=== PATIENT | female | born 1970 | race Caucasian/White ===

== ENCOUNTER → 2023-12-17 13:03 | Outpatient (REF) | payer BC, SELFPAY ==
[2023-12-17 14:13] LABS: % Basophils 0.8 % (0-2); % Eosinophils 2.6 % (0-6); % Immature Granulocytes 0.4 % (0-0.5); % Lymphocytes 42.6 % (20.5-51.1); % Monocytes 7.4 % (1.7-9.3); % Neutrophils 46.2 % (42.2-75.2); Absolute Basophils 0.1 10^3/uL (0-0.2); Absolute Eosinophils 0.2 10^3/uL (0-0.7); Absolute Lymphocytes 3.4 10^3/uL (1.2-3.4); Absolute Monocytes 0.6 10^3/uL (0.1-0.6); Absolute Neutrophils 3.7 10^3/uL (1.4-6.5); Hematocrit 43.7 % (37.0-47.0); Hemoglobin 14.4 g/dL (12.0-16.0); Mean Corpuscular Hgb 31.2 pg (27.0-31.0); Mean Corpuscular Volume 94.8 fL (81.0-99.0); Nucleated Red Blood Cells % 0 %; Platelet Count 216 10^3/uL (130-400); Red Blood Cell Count 4.61 10^6/uL (4.20-5.40); Red Cell Dist. Width 13.4 % (11.5-14.5)
[2023-12-17 14:33] LABS: Blood Urea Nitrogen 14 mg/dl (7-17); Calcium 9.3 mg/dl (8.4-10.2); Carbon Dioxide 33 mmol/L (22-30); Chloride 103 mmol/L (98-107); Glucose 100 mg/dl (70-99); Potassium 3.7 mmol/L (3.5-5.1); Sodium 139 mmol/L (135-145); eGFR > 60.00
== END ==
LOC: RCS 13:03
PROVIDERS: ATTENDING PHYSICIAN Orthopaedic Surgery
DX: Z01.818 Encounter for other preprocedural examination (principal)
CPT/HCPCS: 36415; 80048; 85025; 93005

== ENCOUNTER → 2024-01-03 15:16 | Outpatient (REF) | payer BC, SELFPAY | LOC: RAD 15:16 | PROVIDERS: ATTENDING PHYSICIAN Family Medicine | DX: R06.09 Other forms of dyspnea (principal) | CPT/HCPCS: 71046 ==

== ENCOUNTER 2024-01-08 10:50 | Inpatient (IN) | payer BC, SELFPAY ==
[2024-01-08] VITALS (24 sets, daily range): BP systolic 96–150; BP diastolic 54–100; PULSE 75–80; O2SAT 94–96; BMI 43.3
--- NOTE | 2024-01-08 06:43 | ED.GENMED ---
History of Present Illness
General
Chief Complaint: Musculo-Skeletal Complaint
Time Seen by Provider: 01/08/24 06:27
Travel History
Have you had any contact with someone who has COVID-19?: No
Do you have any symptoms of coronavirus? Fever > 100 degrees, chills, cough, shortness of breath, sore throat, loss of taste or smell, muscle aches, or headache?: No
History of Present Illness
History of Present Illness:
HPI: The patient is postop day 1 for left total knee replacement done by Dr. Jose. Last evening she fell onto the left knee and dehisced the wound. She was originally seen at [facility] and they contacted Dr. Jose/Dr. Mercado who wanted the
atient to be sent here. She reports having extensive CT imaging including the head, C-spine, abdomen pelvis at [facility] which was reportedly negative. She is not sure of left knee x-ray results
EXAM:
GENERAL: The patient appears somewhat uncomfortable, she is currently on oxygen nasal cannula as she did desat after narcotics were given at [facility]
HEENT: Moist oral mucosa
CARDIOVASCULAR: No murmurs, normal heart rate and rhythm, No chest wall tenderness
PULMONARY: No respiratory distress, breath sounds are clear and equal
ABDOMEN: Soft with no peritoneal signs, no tenderness
NEUROLOGIC: Excellent strength all extremities, no coordination deficits
PSYCHIATRIC: Appropriate mental status, normal insight and judgement
EXTREMITIES: She has a relatively large wound dehiscence on the anterior left knee measuring approximately 8 cm x 3 cm with no active bleeding, decreased active range of motion at the left knee
SKIN: As above
ED COURSE:
7:05 AM: I initially evaluated patient
NUMBER AND COMPLEXITY OF PROBLEMS ADDRESSED AT THE ENCOUNTER
� Chronic conditions affecting care: Left knee replacement January 07, 2024, high blood pressure
� Acute Exacerbation and/or Progression of Chronic Illness: This is an acute problem
� Differential Diagnosis includes: Wound dehiscence, periprosthetic fracture
AMOUNT AND/OR COMPLEXITY OF DATA TO BE REVIEWED AND ANALYZED
� I performed an independent evaluation of and my interpretation is:
EKG:
CT:
X-rays: I personally viewed x-ray and see no periprosthetic fracture I personally viewed x-ray and see no evidence of periprosthetic fracture
Laboratory Studies: White count 10.9, hemoglobin 11.1
Other:
� Review of other/old records: Hemoglobin on 12/17/2023 was 14.4
� Clinical information was obtained by an independent historian: I spoke to daughter and at bedside
� Prescriptions/Medications Considered but not given:
� Further testing considered but not performed:
RISK OF COMPLICATIONS AND/OR MORBIDITY OR MORTALITY OF PATIENT MANAGEMENT
� Social determinants of health affecting care: Lives at home
� Discussion with other providers: I notified Dr. Jose and at his recommendation I have ordered gentamicin and Ancef. He states that Dr. Conte will be taking care of her today.
� Escalation of care including admission/observation vs risk of discharge considered: Patient is given IV antibiotics and analgesia. I spoke to PA with Dr. Jose and they accept to their service. I personally redressed the
wound with new 4 x 4's.
Phy Exam
Physical Exam
Physical Exam:
See HPI
Course
Orders/Labs/Results
Orders:
Orders
01/08/24 Breakfast
NPO
Allow oral meds: Yes
Allow clear liquids: No
NPO
Allow oral meds: Yes
Allow clear liquids: 4hrs prior to procedure
Comment: may have unrestricted clear liquid up to 4 hrs prior to scheduled procedure
01/08/24 06:50
Fentanyl Citrate/Pf [Sublimaze] 50 mcg IV NOW STA
CR Knee - Left 4 Or More View* Urgent
Comment:
Reason For Exam: trauma wound dehiscence
01/08/24 06:55
Complete Blood Count/With Diff Urgent
01/08/24 06:56
Basic Metabolic Panel Urgent
01/08/24 07:17
0.9% Sodium Chloride 500 ml [Nss] 500 ml IV BOLUS
01/08/24 07:18
Code Status As Directed
Resuscitation Status: Full Code
Magnesium Hydroxide [Milk of Magnesia] 30 ml PO DAILYPRN PRN
Oxycodone [Roxicodone] 5 mg PO Q4HPRN PRN
Tamsulosin [Flomax] 0.4 mg PO DAILYPRN PRN
Neurovascular Checks As Directed
Location: Left Lower extremity
Frequency: q4h
Weight Bearing Status As Directed
Weight bearing to: Left lower extremity
Type: Full Wt. bearing
01/08/24 07:19
Admit Patient As Directed
Co-Sign Provider:
Level of Care: Inpatient admission
Assign to:: Orthopedics
Physician / Group: Dr. Jose
Diagnosis: Wound dehiscence s/p left TKA
Reason for Hospitalization: Wound dehiscence s/p left TKA
Expected length of stay greater than two midnights?: Yes
ELOS- Estimated Length of Stay in days: 2
I certify the patient meets the requirements for IP care: Yes
Activity As Directed
Activity Level: As Tolerated
Bladder Scan As Directed
Follow Bladder Retention/Intermittent Cath Algorithm?: Yes
PRN if no void in __ hours: 6
Comment: if not voiding 6 hrs upon arrival to floor, bladder scan & follow algorithm
Intake/ Output As Directed
Frequency: Per unit guidelines
Straight Cath As Directed
Frequency: Per Retention Algorithm
Additional Instructions: straight cath as needed per acute urinary retention algorithm for 24 hrs
Additional Instructions: for bladder scan greater than 400 mL
Vital Signs As Directed
Frequency: Per unit guidelines
01/08/24 07:21
Cold Application As Directed
Location: apply ice to affected area
Frequency: PRN
Duration of Application: No longer than 20 minutes
Method of Delivery: Ice packs
01/08/24 07:23
Venous Foot Pumps As Directed
Location: Bilateral feet
DX Deep Vein Thrombosis Video Routine
01/08/24 07:26
CeFAZolin 2 GRAM [Ancef] 2 grams in 10 ml IV NOW
Gentamicin Sulfate [Gentamicin] 240 mg 0.9% Sodium Chloride [Nss] 50 ml IV NOW
01/08/24 07:35
Type+Screen Urgent
01/08/24 08:00
Acetaminophen [Tylenol] 650 mg PO Q4HWA
Povidone Iodine 10% Solution [Povidone Iodine 10%] 114 ml 0.9% Sod Chloride 3000 ml Irr [Nss Irrigation Bag] 3,000 ml IRRIG OR
01/08/24 20:00
Docusate Sodium [Colace] 100 mg PO BID
Sennosides [Senokot] 17.2 mg PO BID
01/09/24 07:00
Tranexamic Acid 3,000 mg 0.9% Sodium Chloride 250 ml [Nss] 250 ml IRRIG OR
Abnormal Lab Results
01/08/24 01/08/24
06:55 06:56
WBC 10.9 H 10^3/uL
(4.8-10.8)
RBC 3.59 L 10^6/uL
(4.20-5.40)
Hgb 11.1 L g/dL
(12.0-16.0)
Hct 33.2 L %
(37.0-47.0)
Abs Immat Gran (auto) 0.1 H 10^3/uL
(0-0.05)
Absolute Neuts (auto) 8.5 H 10^3/uL
(1.4-6.5)
Absolute Monos (auto) 0.7 H 10^3/uL
(0.1-0.6)
Immature Gran % 0.6 H %
(0-0.5)
Neutrophils % 78.4 H %
(42.2-75.2)
Lymphocytes % 14.1 L %
(20.5-51.1)
Glucose 199 H mg/dl
(70-99)
01/08/24 06:55
01/08/24 06:56
Vital Signs
Initial and Last Documented VS:
Initial Vital Signs
Temp Pulse Resp BP Pulse Ox
98.7 F 91 20 118/80 96
01/08/24 06:24 01/08/24 06:24 01/08/24 06:24 01/08/24 06:24 01/08/24 06:24
Last Documented Vital Signs
Temp Pulse Resp BP Pulse Ox
98.7 F 73 15 117/60 90
01/08/24 06:24 01/08/24 07:00 01/08/24 07:00 01/08/24 07:00 01/08/24 07:00
*Critical Care Note
Total Time (30-74mins, 75-104mins- exclusive of procedures): Not Applicable
ED Attending Note
-
Portions of this chart may have been created with voice recognition software.� Occasional wrong word or��sound alike� substitutions may have occurred due to the inherent limitations of voice recognition software.
Discharge Plan
Departure
Patient Disposition: Admit
Date of Disposition: 01/08/24
Time of Disposition: 07:28
Presentation/result/management discussed w/ accepting /: [facility]
Discharge Problem:
Postoperative wound dehiscence
Referrals:
Mateo Ness DO [Family Provider] -
Interventions
Interventions:
*Risk Screen - Suicide Last Done: 01/08/24 06:24
*General Assessment Last Done: 01/08/24 06:24
*Neglect/Abuse Screening Last Done: 01/08/24 06:24
ED- Fall Risk Assessment Last Done: 01/08/24 06:32
ED-Musculoskeletal Assessment Last Done: 01/08/24 06:31
[2024-01-08] MEDS: SUBLIMAZE 50 MCG IV (06:57)
[2024-01-08 07:07] LABS: % Basophils 0.1 % (0-2); % Immature Granulocytes 0.6 % (0-0.5); % Lymphocytes 14.1 % (20.5-51.1); % Monocytes 6.8 % (1.7-9.3); % Neutrophils 78.4 % (42.2-75.2); Absolute Immature Granulocytes 0.1 10^3/uL (0-0.05); Absolute Lymphocytes 1.5 10^3/uL (1.2-3.4); Absolute Monocytes 0.7 10^3/uL (0.1-0.6); Absolute Neutrophils 8.5 10^3/uL (1.4-6.5); Hematocrit 33.2 % (37.0-47.0); Hemoglobin 11.1 g/dL (12.0-16.0); Mean Corp Hgb Conc. 33.4 g/dL (33.0-37.0); Mean Corpuscular Hgb 30.9 pg (27.0-31.0); Mean Corpuscular Volume 92.5 fL (81.0-99.0); Mean Platelet Volume 10.1 fL (7.4-10.4); Nucleated Red Blood Cells % 0 %; Platelet Count 195 10^3/uL (130-400); Red Blood Cell Count 3.59 10^6/uL (4.20-5.40); Red Cell Dist. Width 13.3 % (11.5-14.5); White Blood Cell Count 10.9 10^3/uL (4.8-10.8)
[2024-01-08 07:20] LABS: Blood Urea Nitrogen 17 mg/dl (7-17); Calcium 9.2 mg/dl (8.4-10.2); Carbon Dioxide 25 mmol/L (22-30); Chloride 106 mmol/L (98-107); Estimated Creatinine Clearance 99 ml/min; Glucose 199 mg/dl (70-99); Potassium 3.9 mmol/L (3.5-5.1); Sodium 137 mmol/L (135-145); eGFR > 60.00
[2024-01-08] MEDS: ANCEF 10 IV (07:36)
[2024-01-08] MEDS: NSS 500 IV (07:36)
[2024-01-08] MEDS: GENTAMICIN 56 MG IV (07:42)
--- NOTE | 2024-01-08 07:42 | HP.FOC2 ---
Focused History & Physical
Chief Complaint
HPI:
Chief Complaint: Left knee incisional dehiscence postop day #1 left total knee replacement under the direction Dr. Jose.
HPI / Indication for Planned Procedure: The patient is a 53-year-old female who underwent left total knee replacement yesterday, 01/07/[address] Jose. Patient reports that she was doing great post-operatively. She got up last night to go to
the bathroom, and unfortunately twisted, and sustained a mechanical fall landing directly onto her left knee. Significant bloody drainage coming from the wound was immediately noted. Patient was taken to [facility] where trauma workup was
completed. Per patient, CT scan of the head was negative. Patient was transferred to [facility] for ongoing care and treatment for her left knee incisional wound dehiscence. She is currently lying in bed, does not appear to be in any
acute distress.
Relevant Past Medical History: Hypertension and Other (Asthma, RLS, Anxiety)
Relevant Social History: Negative
Relevant Family History: Negative
Relevant Past Surgical History: Positive for (Left total knee replacement 01/07/[address] Jose)
Review of Systems
Review of Pertinent Systems: All Systems Negative Except for the Following Positives
Medication
See Medication form for detailed medications: Yes
Allergies and Reactions
Patient has Allergies: Yes
Noted Allergies and Reactions:
Allergy/AdvReac Type Severity Reaction Status Date / Time
Penicillins Allergy Unknown Verified 01/08/24 06:23
Pertinent Physical Exam
All Other Systems: Negative
Head/Neck: Normal
Lungs: Normal
Heart: Normal
Abdomen: Normal
Extremities: Other and Other (Bloody saturated soft tissue dressing overlying the left total knee replacement incision. This was slightly taken back for further evaluation to reveal incisional dehiscence about the mid to distal aspect. ROM
deferred. NVI distally. )
Diagnosis / Assessment
Assessment: Left total knee replacement wound dehiscence.
Plan / Procedure
Plan: Will proceed to OR today under the direction of Dr. Conte for left knee irrigation and debridement, revision wound closure. Consent obtained and placed on patient's clipboard in the ED. Antibiotic started in the emergency department. TXA
irrigation and 9 L of iodine irrigation on-call to the OR. Patient to remain NPO. Type and screen ordered. Left knee marked as the correct surgical extremity. Orthopedic surgery will continue to follow along.
[2024-01-08] MEDS: TYLENOL PO ×2 (08:08→16:02)
--- NOTE | 2024-01-08 13:39 | CON.ID ---
Consultation
-
Date/Time Consultation Requested: 01/08/2024, 1000
Date/Time Consultation Performed: 01/08/2024, 1400
Requesting Provider: Dr. Iván Jose
Performing Provider: Dr. Raven Portillo
Reason for Consultation: Traumatic wound dehiscence day 0 postop L TKR
Chief Complaint / Past History
Chief Complaint
Fell and knee incision opened.
History of Present Illness
53 year old female with hx osteoarthritis who underwent elective Left TKR yesterday. Last night, while in the first floor pwder room at home, her leg buckled and she fell on her left knee. The knee incision opened with significant bleeding. She
called EMS who took her to [facility] with trauma service. She reports she received antibiotic at outside ER, he wound was bandaged. She was then transferred to . She was taken to the OR and noted tendon was rupture. She
underwent I+D, polyethylene lining exchange, and repair of patellar tendon.
Past History
Additional Past Medical History:
Gout
Depression/anxiety
Asthma
HTN
Osteoarthritis
Breast CA s/p Lumpectomy
Allergy History:
Penicillins Allergy (Verified 01/08/24 06:23)
Unknown
Medications Reviewed: Yes
Current Antibiotics:
cefazolin in OR
Social History
Tobacco: Non-Smoker
Alcohol: None
Drug: None
Personal:
Living: With Family
Family History
Family History: Not Pertinent
Review of Systems
Review of Systems
General: Negative Fever, Chills or Change in Appetite
HEENT: Negative Sinus Problems, Headache or Pharyngitis
Cardiovascular: Negative Chest Pain
Respiratory: Negative Dyspnea or Cough
Gasteroenterology: Other (no diarrhea); Negative Nausea or Vomiting
Genital / Urological: Negative Dysuria or Flank Pain
Skin / Hair / Nails: Negative Rash
Neurological: Negative Headache or Dizziness
All systems: All other systems were reviewed and were negative
Vital Signs
Temp Pulse Resp BP Pulse Ox
98.7 F 102 16 141/74 92
01/08/24 06:24 01/08/24 13:15 01/08/24 13:15 01/08/24 13:15 01/08/24 13:15
Physical Exam
Physical Exam
Constitutional: No Acute Distress and Obese
Eyes: No Conjunctival Hemorrhage and Sclera Anicteric
Cardiovascular: Regular Rate and S1/S2
Pulmonary: Clear
Gastrointestinal: Soft, Non Tender, Non Distended and Normal Bowel Sounds
Genito-Urinary: Negative CVA Tenderness
Wound: Other (LLE with dressing, immobilizer, wound vac)
Neurological: AO x 3
Lab / Diagnostic Study Results
01/08/24 06:55
01/08/24 06:56
Abs Immat Gran (auto) 0.1 10^3/uL (0-0.05) H 01/08/24 06:55
Absolute Neuts (auto) 8.5 10^3/uL (1.4-6.5) H 01/08/24 06:55
Absolute Lymphs (auto) 1.5 10^3/uL (1.2-3.4) 01/08/24 06:55
Absolute Monos (auto) 0.7 10^3/uL (0.1-0.6) H 01/08/24 06:55
Absolute Basos (auto) 0.0 10^3/uL (0-0.2) 01/08/24 06:55
Immature Gran % 0.6 % (0-0.5) H 01/08/24 06:55
Neutrophils % 78.4 % (42.2-75.2) H 01/08/24 06:55
Lymphocytes % 14.1 % (20.5-51.1) L 01/08/24 06:55
Monocytes % 6.8 % (1.7-9.3) 01/08/24 06:55
Eosinophils % 0.0 % (0-6) 01/08/24 06:55
Basophils % 0.1 % (0-2) 01/08/24 06:55
Microbiology Results
Micro:
01/08/24 12:23 Tissue Culture - Pending
Knee - Left Gram Stain - Pending
01/08/24 Knee XRAY: There is moderate joint effusion with relatively superior positioning of the patella raising concern that the patellar tendon may not be intact.�
Assessment / Plan
# s/p left TKR 01/07/24 s/p same day fall with wound dehiscence, ruptured patella tendon.
- Received abx at outside ER.
- Today s/p I+D, polyethylene exchange, tendon repair
OR cx pending
-Ortho requesting IV prophylactic abx
-Start IV cefepime and po metronidazole for now.
Care Review
Plan reviewed with: Physician (Dr. Jose)
[2024-01-08] MEDS: DUONEB 3 ML INH (13:46)
[2024-01-08] MEDS: NSS 1000 IV (14:03)
[2024-01-08] MEDS: DILAUDID 0.5 MG IV (14:38)
--- NOTE | 2024-01-08 16:02 | PTCARENOTE ---
Patient received from PACU in bed; IVF infusing; Wound vac in place, suction at 125mmHg; Surgical site assessed; Knee immobilizer in place; Patient and family oriented to unit, call cha use; Bed in lowest position, wheels locked; Safety maintained;
Assessment ongoing
[2024-01-08] MEDS: ASPIRIN 325 MG PO (17:29)
[2024-01-08] MEDS: TYLENOL 650 MG PO ×2 (17:29→20:52)
[2024-01-08] MEDS: ROXICODONE 10 MG PO (20:51)
[2024-01-08] MEDS: COLACE 100 MG PO (20:52)
[2024-01-08] MEDS: SENOKOT 17.1999999999999993 MG PO (20:52)
[2024-01-08] MEDS: STERILE WATER FOR INJECTION 10 ML IV (20:53)
[2024-01-08] MEDS: MAXIPIME 2000 MG IV (20:54)
[2024-01-08] MEDS: REQUIP 0.5 MG PO (21:55)
[2024-01-08] MEDS: FLAGYL 500 MG PO (21:56)
[2024-01-09] VITALS (7 sets, daily range): BP systolic 106–153; BP diastolic 54–82; PULSE 83
[2024-01-09] MEDS: TYLENOL 650 MG PO ×5 (00:40→17:46)
[2024-01-09] MEDS: ROXICODONE 5 MG PO (00:41)
[2024-01-09] MEDS: ROXICODONE PO (04:43)
[2024-01-09] MEDS: ROXICODONE 10 MG PO ×4 (04:49→17:59)
[2024-01-09] MEDS: FLAGYL 500 MG PO ×3 (06:11→21:53)
--- NOTE | 2024-01-09 08:03 | W.PN.ORTHO ---
Today's Communication / Plan
-
53 yo F POD1 left TKA I&D with poly exchange, patellar tendon repair and wound vac closure under the direction of Dr. Jose
--Touchdown weight bearing with walker. Knee immobilizer at all times except wound care. Absolutely no flexion of the knee. PT/OT.
--Recommend ASA 325 mg daily x4 weeks for DVT prophylaxis.
--Continue current pain management regimen. Ice and elevation for edema control.
--IV cefepime and PO metronidazole per ID. Preliminary gram stain from intra-op cultures showing may WBC, no organisms. Continue to follow.
--CBC ordered this AM. Continue to monitor hgb.
--Continue wound care/wound vac management.
--Patient will likely be admitted until at least Sunday (01/11/24) pending final culture and recommendations per ID.
--Orthopedics will continue to follow along.
Assessment
.
Distal Motor Intact: Yes
Dressing:
Clean, dry and intact.
Plan
.
Surgery / Date: Left knee I&D with poly exchange
DVT Prophylaxis: Aspirin
Activity:
Out of bed.
PT/OT
Subjective
.
.:
Ms. Angeles is POD1 following her left prosthetic knee I&D with poly exchange, patellar tendon repair and wound vac closure performed by Dr. Jose. She is resting comfortably in bed this morning, and reports her pain is well controlled with her
current medications.
Vital Signs and Labs
.
Vital Signs and Labs:
Lab Results
01/08/24 06:55
01/08/24 06:56
Temp Pulse Resp BP Pulse Ox
98.4 F 75 16 113/66 96
01/09/24 07:20 01/09/24 07:20 01/09/24 07:20 01/09/24 07:20 01/09/24 07:20
Physical Exam
-
Directed exam of the left lower extremity reveals wound vac in place with scant bloody output. Expected post-operative edema throughout the left lower extremity. Thigh soft and compressible. Minimal tenderness to palpation about the knee. Calf soft
and nontender. Patient able to wiggle toes, plantar and dorsiflex ankle. Neurovascularly intact distally.
[2024-01-09] MEDS: ADVAIR HFA 115/21 MCG INHALER 2 PUFF INH (08:05)
[2024-01-09] MEDS: MAXIPIME 2000 MG IV ×2 (08:40→17:46)
[2024-01-09] MEDS: STERILE WATER FOR INJECTION 10 ML IV ×2 (08:40→17:47)
[2024-01-09] MEDS: SINGULAIR 10 MG PO (08:40)
[2024-01-09] MEDS: LEXAPRO 5 MG PO (08:41)
[2024-01-09] MEDS: SENOKOT 17.1999999999999993 MG PO ×2 (08:41→20:01)
[2024-01-09] MEDS: COLACE 100 MG PO ×2 (08:42→20:01)
[2024-01-09] MEDS: ZYLOPRIM 100 MG PO (08:42)
[2024-01-09] MEDS: COZAAR 50 MG PO (08:42)
[2024-01-09] MEDS: LASIX 20 MG PO (08:42)
[2024-01-09] MEDS: ASPIRIN 325 MG PO (08:42)
[2024-01-09 08:52] LABS: % Basophils 0.3 % (0-2); % Eosinophils 0.1 % (0-6); % Immature Granulocytes 0.8 % (0-0.5); % Lymphocytes 33.5 % (20.5-51.1); % Monocytes 6.5 % (1.7-9.3); % Neutrophils 58.8 % (42.2-75.2); Absolute Immature Granulocytes 0.1 10^3/uL (0-0.05); Absolute Lymphocytes 3.8 10^3/uL (1.2-3.4); Absolute Monocytes 0.7 10^3/uL (0.1-0.6); Absolute Neutrophils 6.8 10^3/uL (1.4-6.5); Hematocrit 30.8 % (37.0-47.0); Hemoglobin 9.9 g/dL (12.0-16.0); Mean Corp Hgb Conc. 32.1 g/dL (33.0-37.0); Mean Corpuscular Hgb 30.6 pg (27.0-31.0); Mean Corpuscular Volume 95.1 fL (81.0-99.0); Mean Platelet Volume 10.1 fL (7.4-10.4); Nucleated Red Blood Cells % 0 %; Platelet Count 173 10^3/uL (130-400); Red Blood Cell Count 3.24 10^6/uL (4.20-5.40); Red Cell Dist. Width 13.7 % (11.5-14.5); White Blood Cell Count 11.5 10^3/uL (4.8-10.8)
--- NOTE | 2024-01-09 12:37 | CM ---
Patient seen bedside, initial assessment completed. Patient reports she resides with her and daughter in a two story home, one step to enter. Patient denies DME or SNF, reports [facility] in the past. Patient reports she she has not previously had
a wound vac at home. Patient confirms PCP Mateo Ness, pharmacy [facility]. CM discussed PT recommendation of home health, patient reports she spoke to the Hospitalist earlier and may need a rehab. CM will watch PT/OT evaluations, will continue to
follow for discharge planning needs.
Plan; home with VN vs rehab, pending PT/OT evals.
[2024-01-09] MEDS: MILK OF MAGNESIA 30 ML PO (12:48)
--- NOTE | 2024-01-09 13:05 | WOUNDNOTE ---
WO RN Note: Patient seen around 12pm. Patient sitting in recliner chair. PCT Mayank reports patient's sacral skin is intact. Skin on heels intact. Wound vac intact on L knee. L knee immobilizer in place. [place] texted ortho KERRY Martinez to confirm
next incisional vac change is on Sunday and asked if adaptic with black foam can be used; await response. Confirmed with Shama Gallegos, [employer] rep that home incisional vac is not covered by insurance however, a SNF may be able to provide an incisional
vac post discharge if needed. Updated rn case management Gail Hernandez via tiger text.
[2024-01-09] MEDS: ZOFRAN 4 MG IV (13:29)
--- NOTE | 2024-01-09 14:32 | WOUNDNOTE ---
WOC RN Note: Confirmed with Dionna Michaels next vac dressing change can be Sunday and can use adaptic with black foam. Also carroll texted Karla that home incisional vac is not covered if the incision is approximated however, a SNF may be able
to use a vac for an incision.
--- NOTE | 2024-01-09 15:47 | W.PN.ID1 ---
Date of Service
Date of Service: January 09, 2024
Today's Communication
See below.
Assessment / Plan
# s/p left TKR 01/07/24 s/p same day fall with wound dehiscence, ruptured patella tendon.
- 01/08/24 s/p I+D, polyethylene exchange, tendon repair
OR cx neg to date
-Currently on IV cefepime and po metronidazole (d2)
-Very low probability of bacteria seeding prosthetic joint from wound dehiscence.
She received IV abx immediately at [facility], then at next day.
At time of discharge, recommend a course of cefuroxime 500mg po bid x 2 weeks.
Chief Complaint
-: Other (Wound dehiscence)
Subjective / Review of Systems
No significant pain.
Vital Signs / Physical Exam
Vital Signs
Vital Signs
Temp Pulse Resp BP Pulse Ox
98.1 F 77 14 133/75 93
01/09/24 15:00 01/09/24 15:00 01/09/24 15:00 01/09/24 15:00 01/09/24 15:00
Physical Exam
Constitutional: Comfortable
Gastrointestinal: Soft, Non Tender and Non Distended
Wound: Other (LLE: immobilizer in place)
Objective Data
Lab Data
Lab Results
01/09/24 08:21
01/08/24 06:56
Estimated Creat Clear 99 ml/min 01/08/24 06:56
Most recent labs reviewed.
Micro Results:
01/08/24 12:23 Tissue Culture - Preliminary
Knee - Left No Growth After 18-24 Hours
Gram Stain - Preliminary
01/08/24 Knee XRAY: There is moderate joint effusion with relatively superior positioning of the patella raising concern that the patellar tendon may not be intact.�
[2024-01-09] MEDS: ZOFRAN 4 MG PO (17:51)
[2024-01-09] MEDS: REQUIP 0.5 MG PO (20:01)
[2024-01-09] MEDS: DILAUDID 0.5 MG IV (20:02)
[2024-01-09] MEDS: TYLENOL PO (20:12)
[2024-01-10] MEDS: TYLENOL PO ×2 (00:26→04:09)
[2024-01-10] MEDS: ROXICODONE 10 MG PO ×3 (01:28→20:11)
[2024-01-10] MEDS: ZOFRAN 4 MG IV ×2 (01:28→09:21)
[2024-01-10] MEDS: MAXIPIME 2000 MG IV ×2 (05:32→18:20)
[2024-01-10] MEDS: FLAGYL 500 MG PO ×3 (05:32→21:49)
[2024-01-10] MEDS: STERILE WATER FOR INJECTION 10 ML IV ×2 (05:33→18:20)
[2024-01-10] MEDS: DILAUDID 0.5 MG IV (05:55)
--- NOTE | 2024-01-10 06:56 | W.PN.ORTHO ---
Today's Communication / Plan
-
PT/OT
Immobilizer at all times
Wound VAC/wound care nurse
Aspirin DVT prophylaxis
TDWB as tolerated in knee immobilizer
No left knee flexion
Wound cultures pending
Appreciate ID input on antibiotics
Follow-up next week for wound check
Assessment
.
Distal Motor Intact: Yes
Dressing:
Clean, dry and intact.
Plan
.
Surgery / Date: Left knee I&D with poly exchange
DVT Prophylaxis: Aspirin
Activity:
Out of bed.
PT/OT
Discharge Plan: SNF
Subjective
.
.:
Patient resting comfortably.
Vital Signs and Labs
.
Vital Signs and Labs:
Lab Results
01/09/24 08:21
01/08/24 06:56
Temp Pulse Resp BP Pulse Ox
98.3 F 85 18 106/54 93
01/09/24 23:02 01/09/24 23:02 01/09/24 23:02 01/09/24 23:02 01/09/24 23:02
Physical Exam
-
Left leg knee immobilizer in place with wound VAC
[2024-01-10 07:44] VITALS: BP 144/82
--- NOTE | 2024-01-10 07:50 | W.PN.UPDATE ---
Update Note
Progress Note Update
pt seen and examined yesterday and today...
only small amount of fluid in wound vac cannister, and no fluid in hose which I take as a good sign.
regarding wound, it is incompletely approximated and continued vac use at d/c would be beneficial however we will remove OR vac sponge tomorrow am and assess. If wound care nurse could meet me around 8a that would be awesome.
She has only stood by side of bed and not done any ADL's yet so I'm not sure any determination on discharge disposition can be made yet. Terence's note says WBAT but that's inaccurate, she should be TDWB LLE.
I spoke hank Portillo of ID, at my request she is amenable to 2 weeks of IV abx then reassessment in office. She didn't feel wound had significant contamination but I indicated based on area of wound dehiscense and patella tendon rupture it was
directly over the anterior knee and prosthesis was definitely exposed to outside contaminants for extended period of time measuring 12 hrs+. After IV I may put her on a course of PO abx.
Knee must remain 100% straight at all times, every second of every minute of every day for 3 months. Must not bend in the slightest for 3 months. Hopefully there will be no infection and with my direct repair patella tendon can reconstitute.
She's scared and anxious and I offered support we are doing everything possible for her and I did very agrressive debridement of all contaminated material during the surgery.
For hospital records purposes the debridement mentioned in my op note was excsisional of skin, subq fat, fascial tissue and kat fragments at the patella tendon avulsion/tear site.
[2024-01-10] MEDS: ADVAIR HFA 115/21 MCG INHALER 2 PUFF INH (08:16)
--- NOTE | 2024-01-10 08:55 | W.PN.ID1 ---
Date of Service
Date of Service: January 10, 2024
Today's Communication
DC planning.
See below.
Assessment / Plan
# s/p left TKR 01/07/24 s/p same day fall with wound dehiscence, ruptured patella tendon.
- 01/08/24 s/p I+D, polyethylene exchange, tendon repair
OR cx neg to date
-Currently on IV cefepime and po metronidazole (d3)
-Very low probability of bacteria seeding prosthetic joint from wound dehiscence.
She received IV abx immediately at [facility], then at next day.
However, Ortho Dr. Jose requesting IV antibiotic to protect prosthesis
- Will plan on cefepime 2g IVq12h x 2 weeks through 01/23/2024
Continue metronidazole 500mg po q8 through 01/23/24.
Follow weekly CMP, CBC, CRP while on abx.
Ordered midline.
Infusion sheet submitted to case packer.
-From ID standpoint, can dc when IV abx set up.
Call if any questions.
Chief Complaint
-: Other (Wound dehiscence)
Subjective / Review of Systems
No complaints.
Vital Signs / Physical Exam
Vital Signs
Vital Signs
Temp Pulse Resp BP Pulse Ox
98.8 F 94 18 144/82 92
01/10/24 07:44 01/10/24 08:19 01/10/24 08:19 01/10/24 07:44 01/10/24 08:19
Physical Exam
Constitutional: No Acute Distress and Comfortable
Gastrointestinal: Soft and Non Tender
Wound: Other (LLE with immobilizer and wound vac in place.)
Objective Data
Lab Data
Lab Results
01/09/24 08:21
01/08/24 06:56
Estimated Creat Clear 99 ml/min 01/08/24 06:56
Most recent labs reviewed.
Micro Results:
01/08/24 12:23 Tissue Culture - Preliminary
Knee - Left No Growth After 18-24 Hours
Gram Stain - Preliminary
01/08/24 Knee XRAY: There is moderate joint effusion with relatively superior positioning of the patella raising concern that the patellar tendon may not be intact.�
Care Review
Plan reviewed with: Physician (Dr. Jose)
[2024-01-10] MEDS: ASPIRIN 325 MG PO (09:11)
[2024-01-10] MEDS: SENOKOT 17.1999999999999993 MG PO ×2 (09:11→20:06)
[2024-01-10] MEDS: LEXAPRO 5 MG PO (09:12)
[2024-01-10] MEDS: TYLENOL 650 MG PO ×4 (09:12→20:06)
[2024-01-10] MEDS: COLACE 100 MG PO ×2 (09:12→20:06)
[2024-01-10] MEDS: COZAAR 50 MG PO (09:12)
[2024-01-10] MEDS: SINGULAIR 10 MG PO (09:12)
[2024-01-10] MEDS: ZYLOPRIM 100 MG PO (09:12)
--- NOTE | 2024-01-10 12:19 | CM ---
Addendum entered by Melvina Barney RN 01/10/24 15:26:
[facility] willing to accept, but is requesting PMR consult for prior auth. TT to attending requesting PMR consult.
Original Note:
Reviewed the chart notes and spoke with the patient at the bedside. The patient was evaluated by PT and recommending Acute Rehab. Referral sent to [facility] [place]. Discussed if unaccepted or insurance denies acute rehab, referrals to area SNF could be
placed for wound care and IV abx through 01/24/24. CM continues to be available to patient/family and is monitoring medical plan for needs at discharge.
Plan: Discharge to either acute rehab or SNF when bed found and insurance auth obtained.
[2024-01-10] MEDS: LASIX 20 MG PO (15:07)
[2024-01-10 15:51] VITALS: BP 138/79
[2024-01-10] MEDS: REGLAN 10 MG PO (16:38)
[2024-01-10] MEDS: ZOFRAN 4 MG PO (18:20)
[2024-01-10] MEDS: REQUIP 0.5 MG PO (21:49)
[2024-01-10 23:09] VITALS: BP 135/76
[2024-01-11] MEDS: TYLENOL 650 MG PO ×5 (00:18→19:42)
[2024-01-11] MEDS: ZOFRAN 4 MG PO ×2 (00:20→13:27)
[2024-01-11] MEDS: TYLENOL PO (04:03)
[2024-01-11] MEDS: FLAGYL 500 MG PO ×3 (06:02→22:22)
[2024-01-11] MEDS: STERILE WATER FOR INJECTION 10 ML IV ×2 (06:02→17:10)
[2024-01-11] MEDS: MAXIPIME 2000 MG IV ×2 (06:03→17:09)
[2024-01-11] MEDS: ROXICODONE 10 MG PO ×2 (06:14→22:30)
[2024-01-11 07:22] VITALS: BP 147/81
[2024-01-11] MEDS: SINGULAIR 10 MG PO (07:35)
[2024-01-11] MEDS: ASPIRIN 325 MG PO (07:35)
[2024-01-11] MEDS: LEXAPRO 5 MG PO (07:35)
[2024-01-11] MEDS: COLACE 100 MG PO ×2 (07:36→19:42)
[2024-01-11] MEDS: SENOKOT 17.1999999999999993 MG PO ×2 (07:36→19:42)
[2024-01-11] MEDS: ZYLOPRIM 100 MG PO (07:37)
[2024-01-11] MEDS: COZAAR PO (07:37)
[2024-01-11] MEDS: REGLAN 10 MG PO ×3 (07:37→16:11)
[2024-01-11] MEDS: DILAUDID 0.5 MG IV (07:43)
[2024-01-11] MEDS: ADVAIR HFA 115/21 MCG INHALER INH (08:10)
--- NOTE | 2024-01-11 09:15 | WOUNDNOTE ---
[facility] RN note: Patient seen with Dr. Herrera for vac dressing change L knee. Incision with sutures intact with couple of open areas along incision 1.5x.2x.1; .5x.2x.1 approximately. Small-moderate ss drainage. Skin with pinpoint scattered denuded
areas next to incision laterally. L lateral lower thigh with couple of small serous filled blisters suspect r/t edema and friction, applied adaptic and gauze without tape between blisters and knee immobilizer. Vac dressing changed with adaptic,
black foam, pump setting 125mmhg continuous. Confirmed with Dr. Herrera adaptic with black foam is to be used. Patient tolerated well. Vac tubing padded with an ABD pad under tubing under knee immobilizer. L knee immobilizer fastened. L knee
remains completely straight. Plan is possible transfer to [place] vs [facility] rehab when discharged. Dr. Herrera aware L knee vac dressing will need to be removed and temporary dressing (i.e. Adaptic/ABD pad) on day of transfer outside of this building to
SNF rehab and SNF rehab would apply their vac equipment. Dr. Herrera stated may place a pillow under L calf section only to elevate heel off bed. Air chair cushion placed under L calf/ankle to offload L heel. Patient is lifting her R heel off bed.
Skin on heels intact. Next vac change due Sunday.
--- NOTE | 2024-01-11 09:20 | WOUNDNOTE ---
[facility] RN note: Patient seen with Dr. Herrera for vac dressing change L knee. Incision with sutures intact with couple of open areas along incision 1x.3x.1; .5x.2x.1 approximately. Small-moderate ss drainage. Skin with pinpoint scattered denuded areas
next to incision laterally. L lateral lower thigh with couple of small serous filled blisters suspect r/t edema and friction, applied adaptic and gauze without tape between blisters and knee immobilizer. Vac dressing changed with adaptic, black
foam, pump setting 125mmhg continuous. Confirmed with Dr. Herrera adaptic with black foam is to be used. Patient tolerated well. Vac tubing padded with an ABD pad under tubing under knee immobilizer. L knee immobilizer fastened. L knee remains
completely straight. Plan is possible transfer to [place] vs [facility] rehab when discharged. Dr. Herrera aware L knee vac dressing will need to be removed and temporary dressing (i.e. Adaptic/ABD pad) on day of transfer outside of this building to SNF rehab
and SNF rehab would apply their vac equipment. Dr. Herrera stated may place a pillow under L calf section only to elevate heel off bed. Air chair cushion placed under L calf/ankle to offload L heel. Patient is lifting her R heel off bed. Skin on
heels intact. Next vac change due Sunday.
--- NOTE | 2024-01-11 10:23 | PN.CDI ---
CDI
- -
CDI:
Physician Documentation Request
Admit Date: 01/08/24 10:50
Dear Doctor Rebeca ,
Please review the following and provide your response in the progress notes.
Clinical Indicators:
Height: 5 ft4 ft
Weight: 252 lb 3.4 oz
BMI: 43
If possible, please provide an associated diagnosis related to the abnormal BMI, such as:
BMI > or = to 40
Obesity:
Due to excess calories
Drug induced
Due to other cause
Severe or morbid obesity:
With alveolar hypoventilation (Obesity hypoventilation syndrome)
- Other
Use of terms such as suspected, likely, concern for, or probable (associated with a specific diagnosis that is being evaluated, monitored, or treated as if it exists) are acceptable and can be coded in the inpatient setting, when documented at the
time of discharge.
Thank you,
Daniela West RN
CDI Specialist
[place] [facility]
Please use your independent medical judgment in providing your response.
--- NOTE | 2024-01-11 10:28 | PN.CDI ---
CDI
- -
CDI:
Physician Documentation Request
Admit Date: 01/08/24 10:50
Dear Doctor Rebeca,
Please review the following and provide your response in the progress notes.
Clinical Indicators:
Pt admitted with traumatic wound dehiscence of left knee
Documented per Consult, ' The knee incision opened with significant bleeding...'
Trended HGB /Hematocrit below
01/08/24 01/09/24
06:55 08:21
Hgb 11.1 L 9.9 L
Hct 33.2 L 30.8 L
Please provide a diagnosis for the above labs:
Acute blood loss anemia
Acute blood loss anemia with baseline chronic anemia (Specify type)
Other ( Please Specify)
Use of terms such as suspected, likely, concern for, or probable (associated with a specific diagnosis that is being evaluated, monitored, or treated as if it exists) are acceptable and can be coded in the inpatient setting, when documented at the
time of discharge.
Thank you,
Daniela West RN
CDI Specialist
[place] [facility]
Please use your independent medical judgment in providing your response.
--- NOTE | 2024-01-11 12:29 | CM ---
Received notification from admissions at [facility] who spoke with attending who stated that patient can be medically cleared for discharge, just awaiting authorization from insurance.
Placed a call to [employer], patient's insurance and spoke with a [employer] representatives named, Radha, who took preliminary information and provided reference number-[id number]. She requested clinical be faxed to her at [phone]. Will fax all
clinical.
Plan: Case management will continue to follow and assist with discharge planning. [facility] when hopeful clinical is approved for transfer.
--- NOTE | 2024-01-11 13:12 | CON.MD ---
Documented by User: Rhonda Nicole PA-C 01/11/24 16:29
Consultation - Medical
-
Referring Provider: Iván Jose
Chief Complaint: Left knee incisional dehiscence postop day #1 left total knee replacement under the direction Dr. Jose.
History of Present Illness: The patient is a 53-year-old female with PMH of (Hypertension, Asthma, Morbid Obesity, RLS, Gout,Anxiety) who underwent left total knee replacement yesterday, 01/07/[address] Jose.� Patient reports that she was doing
great post-operatively.� She got up last night to go to the bathroom, and unfortunately twisted, and sustained a mechanical fall landing directly onto her left knee.� Significant bloody drainage coming from the wound was immediately noted.� Patient
was taken to [facility] where trauma workup was completed.� Per patient, CT scan of the head was negative.� Patient was transferred to [facility]. On 01/07, underwent left knee irrigation and debridement with polyethylene liner
exchange, primary repair of left patella tendon with suture. Placement of incisional wound VAC. Currently on IV and PO antibiotics prophylaxis until 01/23/2024
Past Medical History: Hypertension, Morbid Obesity, Asthma, RLS, Anxiety, Gout
Procedure History: Left total knee replacement 01/07/[address] Jose
Family History: non-contributory
Social History:
Functional Level Premorbidly: Independent with all activities
Functional Level Currently: Toe touch weight bearing with knee immobilizer, strict precautions to maintain knee extension. Sit to stand transfer�mod assist, stand to sit�mod assist, mod assist x 1 for transfer from bedside chair for left lower
extremity assist. Ambulated 40 feet x 2 1 with rolling walker and min assist x 1 for safety and multiple lines. Toileting�max assist to wipe buttocks and private on commode due to weightbearing status. Pants over hips in standing dependent.
Toilet transfer�mod assist
Tobacco: Denies
Alcohol: Denies
Drug use: Denies
Lives with: Family
24-hour assistance available:
Number of floors: 2
# steps to enter: No steps to enter through garage.
# steps to second floor: 14 steps
Potential First floor set up: Patient was sleeping on a couch first level prior, no bed set up
Driving: yes
Occupation: works
�
Allergies:
Allergy/AdvReac Type Severity Reaction Status Date / Time
Penicillins Allergy Unknown/she Verified 01/08/24 15:15
was a baby
Review of Systems:
Constitutional: (x) Normal _
Eye: (x) Normal _
Ear/Nose/Throat: (x) Normal _
Respiratory: (x) Normal _
Cardiovascular: (x) Normal _
Gastrointestinal: (x) Normal _
Genitourinary: (x) Normal _
Musculoskeletal: (x) left knee replacement
Integumentary: (x) wound dehiscence
Neurologic: (x) Normal _
Psychiatric: (x) Normal _
Endocrine: (x) Normal _
Hematologic/Lymphatic: (x) Normal _
Allergic/Immunologic: (x) Normal _
Medications:
Active Current Visit Medication List
Category Date Time Status
Acetaminophen [Tylenol] Med 01/08/24 08:00 Active
650 mg PO Q4HWA
Albuterol [ProAIR HFA INHALER] Med 01/08/24 13:09 Active
2 puff INH R Q4HPRN PRN
Allopurinol [Zyloprim] Med 01/09/24 08:00 Active
100 mg PO DAILY
Alprazolam [Xanax] Med 01/08/24 13:09 Active
0.5 mg PO BIDPRN PRN
Aspirin Med 01/08/24 18:00 Active
325 mg PO DAILY
Cefepime HCl [Maxipime] Med 01/08/24 18:00 Active
2,000 mg IV Q12H
Docusate Sodium [Colace] Med 01/08/24 20:00 Active
100 mg PO BID
Escitalopram Oxalate [Lexapro] Med 01/09/24 08:00 Active
5 mg PO DAILY
Flush (0.9% Sodium Chloride) [Flush (Nss)] Med 01/08/24 14:00 Active
See Dose Instructions IV PER PROTOCOL
Fluticasone/Salmeterol 115/21 [Advair Hfa 115/21 Mcg Med 01/09/24 08:00 Active
Inhaler]
2 puff INH R DAILY
Furosemide [Lasix] Med 01/08/24 13:09 Active
20 mg PO DAILYPRN PRN
HYDROmorphone [Dilaudid] Med 01/08/24 13:09 Active
0.5 mg IV Q3HPRN PRN
Losartan [Cozaar] Med 01/09/24 08:00 Active
50 mg PO DAILY
Magnesium Hydroxide [Milk of Magnesia] Med 01/08/24 07:18 Active
30 ml PO DAILYPRN PRN
Metoclopramide [Reglan] Med 01/10/24 16:30 Active
10 mg PO AC
MetroNIDAZOLE [Flagyl] Med 01/08/24 22:00 Active
500 mg PO Q8H
Montelukast Sodium [Singulair] Med 01/09/24 08:00 Active
10 mg PO DAILY
Ondansetron HCl [Zofran] Med 01/10/24 16:15 Active
4 mg PO Q6HPRN PRN
Oxycodone [Roxicodone] Med 01/08/24 13:09 Active
10 mg PO Q4HPRN PRN
Oxycodone [Roxicodone] Med 01/08/24 07:18 Active
5 mg PO Q4HPRN PRN
Ropinirole [Requip] Med 01/08/24 22:00 Active
0.5 mg PO HS
Sennosides [Senokot] Med 03/05/24 20:00 Active
17.2 mg PO BID
Sterile Water [Sterile Water For Injection] Med 01/08/24 18:00 Active
10 ml IV Q12H
Tamsulosin [Flomax] Med 01/08/24 07:18 Active
0.4 mg PO DAILYPRN PRN
Vitals:
Temp Pulse Resp BP Pulse Ox
98.1 F 81 18 147/81 94
01/11/24 07:22 01/11/24 07:22 01/11/24 07:22 01/11/24 07:37 01/11/24 07:22
Height 5 ft 4 in
Actual Weight 114.4 kg
Body Mass Index (BMI) 43.3
Physical Exam:
General Appearance/Observation: Well-developed, well-nourished individual in no apparent distress.
Pain/Comfort Assessment: Denies at the moment with pain med
Mood/Affect: Appropriate, pleasant
Integumentary/Operative Site:Wound vac in place with scan bloody output- left lower extremity
�� Pressure Ulcer Evaluation: absent over heels.
�
�� Other Type of Wound: left knee
��
Eyes: Conjunctiva/Lids: normal ��� Pupils: pupils equal round and reactive to light and Accommodation
Ears/Nose/Throat: oral mucosa moist,� throat clear.������������ Lips/Teeth/Gums: normal
Neck: No muscle spasm or tenderness
Cardiovascular: Heart: regular, no murmur
Pulses: dorsalis pedis 1+ bilaterally
Respiratory: Respiratory Effort/Chest Expansion: normal ������ Auscultation: Clear to auscultation bilaterally
Gastrointestinal: abdomen not tender, no distension, normal abdominal bowel sounds
Genitourinary: No Mccoy
Extremities: Edema: left lower ext. swelling>right Cyanosis: None Trophic changes: None
Neurology Exam:
Orientation: Alert, Oriented to self, Time, Place
Memory: Intact for immediately medical concerns
Higher cortical function
Comprehension: Intact
Two step command: Intact
Naming: Intact
Cranial Nerves:
�� CNII: Pupillary light reflex: Intact��� Visual Field:
�� CN III, IV, : Extraocular muscles: Intact
�� CN VII: Facial movement: Symmetric
�� CN VIII: Hearing: Normal
�� CN IX/X: Speech & swallow: Normal, Position of Uvula: Midline
�� CN XI: Shoulder shrug: Symmetric
�� CN XII: Tongue protrusion: Midline
Sensory:
�� Light touch: Intact in bilateral upper and lower extremities
��
Reflexes:
�� Biceps: 2+ bilaterally
�� Brachioradialis: 2+ bilaterally
�� Triceps: 2+ bilaterally
�� Patellar: 2+ right , left deferred
�� Achilles: 1+ bilaterally
�� Babinski: Down going bilaterally
�� Leo: Negative bilaterally
Musculoskeletal:
Motor: (Manual muscle scale 0-5)
Muscle SA EF WE EE FF FA HF KE DF EHL PF
Right� 5 5 5 5 5 5 4 4 5 5 5
Left 5 5 5 5 5 5 5
Tone: Normal in all extremities, left LE not tested
Range of Motion: Passively within normal limits in all extremities, Left LE not tested
Lab Results
Labs
WBC 11.5 10^3/uL (4.8-10.8) H 01/09/24 08:21
RBC 3.24 10^6/uL (4.20-5.40) L 01/09/24 08:21
Hgb 9.9 g/dL (12.0-16.0) L 01/09/24 08:21
Hct 30.8 % (37.0-47.0) L 01/09/24 08:21
MCV 95.1 fL (81.0-99.0) 01/09/24 08:21
MCH 30.6 pg (27.0-31.0) 01/09/24 08:21
MCHC 32.1 g/dL (33.0-37.0) L 01/09/24 08:21
RDW 13.7 % (11.5-14.5) 01/09/24 08:21
Plt Count 173 10^3/uL (130-400) 01/09/24 08:21
MPV 10.1 fL (7.4-10.4) 01/09/24 08:21
Abs Immat Gran (auto) 0.1 10^3/uL (0-0.05) H 01/09/24 08:21
Absolute Neuts (auto) 6.8 10^3/uL (1.4-6.5) H 01/09/24 08:21
Absolute Lymphs (auto) 3.8 10^3/uL (1.2-3.4) H 01/09/24 08:21
Absolute Monos (auto) 0.7 10^3/uL (0.1-0.6) H 01/09/24 08:21
Absolute Eos (auto) 0.0 10^3/uL (0-0.7) 01/09/24 08:21
Absolute Basos (auto) 0.0 10^3/uL (0-0.2) 01/09/24 08:21
Immature Gran % 0.8 % (0-0.5) H 01/09/24 08:21
Neutrophils % 58.8 % (42.2-75.2) 01/09/24 08:21
Lymphocytes % 33.5 % (20.5-51.1) 01/09/24 08:21
Monocytes % 6.5 % (1.7-9.3) 01/09/24 08:21
Eosinophils % 0.1 % (0-6) 01/09/24 08:21
Basophils % 0.3 % (0-2) 01/09/24 08:21
Nucleated RBC % 0 % 01/09/24 08:21
Sodium 137 mmol/L (135-145) 01/08/24 06:56
Potassium 3.9 mmol/L (3.5-5.1) 01/08/24 06:56
Chloride 106 mmol/L (98-107) 01/08/24 06:56
Carbon Dioxide 25 mmol/L (22-30) 01/08/24 06:56
BUN 17 mg/dl (7-17) 01/08/24 06:56
Creatinine 0.8 mg/dL (0.6-1.0) 01/08/24 06:56
Estimated Creat Clear 99 ml/min 01/08/24 06:56
eGFR > 60.00 01/08/24 06:56
Glucose 199 mg/dl (70-99) H 01/08/24 06:56
Calcium 9.2 mg/dl (8.4-10.2) 01/08/24 06:56
Blood Type O POS 01/08/24 07:39
Blood Type Confirm Cancelled 01/08/24 09:11
Antibody Screen Negative (Negative) 01/08/24 07:39
�
Diagnostic Results: as per HPI
Assessment patient is a 53-year-old female with PMH of (Hypertension, Asthma, Morbid Obesity, RLS, Gout,Anxiety) who underwent left total knee replacement yesterday, 01/07/[address] Jose.� Patient reports that she was doing great
post-operatively.� She got up last night to go to the bathroom, and unfortunately twisted, and sustained a mechanical fall landing directly onto her left knee. On 01/07, underwent left knee irrigation and debridement with polyethylene liner exchange,
primary repair of left patella tendon with suture. Placement of incisional wound VAC.
Plan
PT/OT to increase independence with ADLs, improve balance, coordination, endurance, strength, mobility, community reintegration, decreased burden of care on others and family education.
Left total knee replacement on 01/06 with wound dehiscence/ s/p tendon repair: 01/07 underwent Post left knee irrigation and debridement with polyethylene liner exchange, primary repair of left patella tendon with suture. Placement of incisional
wound VAC. wound care/wound vac management. Per ortho touchdown weight bearing with walker. Knee immobilizer at all times except wound care.�Absolutely no flexion of the knee.
ID recommended-IV cefepime and PO metronidazole. Preliminary gram stain from intra-op cultures showing many WBC, no organisms to date. Per surgeon-Knee must remain 100% straight at all times, every second of every minute of every day for 3 months.�
Must not bend in the slightest for 3 months.� Patient on IV cefepime 2g IVq12h x 2 weeks through 01/23/2024. Continue metronidazole 500mg po q8 through 01/23/24. Follow weekly CMP, CBC, CRP while on abx.�
HTN: Losartan potassium 50 mg daily, monitor closely
RLS: Requip 0.5 at bedtime.
Asthma: Advair HFA 112 03/25 mcg inhaler, 2 puffs daily
Bilateral lower extremity edema: Consider TEDS as able. Increased fluid will cause more force requirement to move lower extremities which requires more strength and increases fatigue. Lasix prn
Anemia: Likely multifactorial.�Hgb 9.9 Continue to monitor.
Gout:Allopurinol 100mg qd
Psych: Psychology consult.� anxiety- Lexapro 5mg, adjust medications as needed.
Skin: monitor for pressure sores/rashes/lesions. Wound vac noted on left side. Left knee in immobilizer
Pain: acetaminophen or oxycodone as needed.Ice and elevation for edema control.
Bowel: Colace and Senna, PRN bisacodyl.
Bladder: Time void, PVRs, PRN straight cath.
GI Prophylaxis: Pantoprazole
DVT Prophylaxis: ortho Recommend ASA 325 mg daily x4 weeks for DVT prophylaxis.
Pulmonary: Incentive spirometry
Morbid obesity: Continue to counseling program leader patient about diet adjustments to control obesity. Body habitus and increased force to move body and extremities causes further difficulty with functional tasks.
Safety: Continue to reinforce assistance with all transfers.
Code Status:� Full code
Dispo (date/plan/equipment needs): Home with family care.� Social history reviewed.
Functional and Medical Goals: Modified Independent with ADL�s, ambulation, transfers
Summary of recommendations:
- Discharge Destination: Patient would benefit from acute inpatient rehab due to morbid obesity with limited activity on the left side secondary to patellar reconstruction, is on IV antibiotics to prevent infection and requiring
wound VAC which require fpc care.
Left total knee replacement on 01/06 with wound dehiscence/ s/p tendon repair: 01/07 underwent Post left knee irrigation and debridement with polyethylene liner exchange, primary repair of left patella tendon with suture. Placement of incisional
wound VAC. wound care/wound vac management. Per ortho touchdown weight bearing with walker. Knee immobilizer at all times except wound care.�Absolutely no flexion of the knee.
ID recommended-IV cefepime and PO metronidazole. Preliminary gram stain from intra-op cultures showing many WBC, no organisms to date. Per surgeon-Knee must remain 100% straight at all times, every second of every minute of every day for 3 months.�
Must not bend in the slightest for 3 months.� On IV cefepime 2g IVq12h x 2 weeks through 01/23/2024
Continue metronidazole 500mg po q8 through 01/23/24. Follow weekly CMP, CBC, CRP while on abx.�
Pain: acetaminophen or oxycodone as needed.Ice and elevation for edema control. Patient needs to be off IV pain meds for transfer to rehab.
Nausea: Reglan prn. Can try eating first before taking pain meds and see if that improves nausea
DVT Prophylaxis: ortho Recommend ASA 325 mg daily x4 weeks for DVT prophylaxis.
Pulmonary: Incentive spirometry
Morbid obesity: Continue to counseling program leader patient about diet adjustments to control obesity. Body habitus and increased force to move body and extremities causes further difficulty with functional tasks.
Safety: Continue to reinforce assistance with all transfers.
Blood pressure must be less than 180 systolic and 100 diastolic for 24 hours before being stable for transfer to SNF/acute rehab.

Documented by User: Devendra Lima MD 01/11/24 17:57
Consultation - Medical
-
Referring Provider: Iván Jose
Chief Complaint: Left knee incisional dehiscence postop day #1 left total knee replacement under the direction Dr. Jose.
History of Present Illness: 53-year-old F [facility] (Hypertension, Asthma, Morbid Obesity, RLS, Gout,Anxiety) who underwent left total knee replacement 01/07/[address] Jose.� Patient reports that she was doing great post-operatively.� She got up last
night to go to the bathroom, and unfortunately twisted, and sustained a mechanical fall landing directly onto her left knee.� Significant bloody drainage coming from the wound was immediately noted.� Patient was taken to [facility] where
trauma workup was completed.� Per patient, CT scan of the head was negative.� Patient was transferred to [facility]. On 01/07, underwent left knee irrigation and debridement with polyethylene liner exchange, primary repair of left patella
tendon with suture. Placement of incisional wound VAC. Currently on IV and PO antibiotics prophylaxis until 01/23/2024.
Past Medical History: Hypertension, Morbid Obesity, Asthma, RLS, Anxiety, Gout
Procedure History: Left total knee replacement 01/07/[address] Jose
Family History: non-contributory
Social History:
Functional Level Premorbidly: Independent with all activities
Functional Level Currently: Toe touch weight bearing with knee immobilizer, strict precautions to maintain knee extension. Sit to stand transfer�mod assist, stand to sit�mod assist, mod assist x 1 for transfer from bedside chair for left lower
extremity assist. Ambulated 40 feet x 2 1 with rolling walker and min assist x 1 for safety and multiple lines. Toileting�max assist to wipe buttocks and private on commode due to weightbearing status. Pants over hips in standing dependent.
Toilet transfer�mod assist
Tobacco: Denies
Alcohol: Denies
Drug use: Denies
Lives with: Family
24-hour assistance available: No
Number of floors: 2
# steps to enter: No steps to enter through garage.
# steps to second floor: 14 steps
Potential First floor set up: Patient was sleeping on a couch first level prior, no bed set up
Driving: yes
Occupation: works
�
Allergies:
Allergy/AdvReac Type Severity Reaction Status Date / Time
Penicillins Allergy Unknown/she Verified 01/08/24 15:15
was a baby
Review of Systems:
Constitutional: (x) abNormal _tired
Eye: (x) Normal _
Ear/Nose/Throat: (x) Normal _
Respiratory: (x) Normal _
Cardiovascular: (x) Normal _
Gastrointestinal: (x) Normal _
Genitourinary: (x) Normal _
Musculoskeletal: (x) left knee replacement
Integumentary: (x) wound dehiscence
Neurologic: (x) Normal _
Psychiatric: (x) Normal _
Endocrine: (x) Normal _
Hematologic/Lymphatic: (x) Normal _
Allergic/Immunologic: (x) Normal _
Medications:
Active Current Visit Medication List
Category Date Time Status
Acetaminophen [Tylenol] Med 01/08/24 08:00 Active
650 mg PO Q4HWA
Albuterol [ProAIR HFA INHALER] Med 01/08/24 13:09 Active
2 puff INH R Q4HPRN PRN
Allopurinol [Zyloprim] Med 01/09/24 08:00 Active
100 mg PO DAILY
Alprazolam [Xanax] Med 01/08/24 13:09 Active
0.5 mg PO BIDPRN PRN
Aspirin Med 01/08/24 18:00 Active
325 mg PO DAILY
Cefepime HCl [Maxipime] Med 01/08/24 18:00 Active
2,000 mg IV Q12H
Docusate Sodium [Colace] Med 01/08/24 20:00 Active
100 mg PO BID
Escitalopram Oxalate [Lexapro] Med 01/09/24 08:00 Active
5 mg PO DAILY
Flush (0.9% Sodium Chloride) [Flush (Nss)] Med 01/08/24 14:00 Active
See Dose Instructions IV PER PROTOCOL
Fluticasone/Salmeterol 115/21 [Advair Hfa 115/21 Mcg Med 01/09/24 08:00 Active
Inhaler]
2 puff INH R DAILY
Furosemide [Lasix] Med 01/08/24 13:09 Active
20 mg PO DAILYPRN PRN
HYDROmorphone [Dilaudid] Med 01/08/24 13:09 Active
0.5 mg IV Q3HPRN PRN
Losartan [Cozaar] Med 01/09/24 08:00 Active
50 mg PO DAILY
Magnesium Hydroxide [Milk of Magnesia] Med 01/08/24 07:18 Active
30 ml PO DAILYPRN PRN
Metoclopramide [Reglan] Med 01/10/24 16:30 Active
10 mg PO AC
MetroNIDAZOLE [Flagyl] Med 01/08/24 22:00 Active
500 mg PO Q8H
Montelukast Sodium [Singulair] Med 01/09/24 08:00 Active
10 mg PO DAILY
Ondansetron HCl [Zofran] Med 01/10/24 16:15 Active
4 mg PO Q6HPRN PRN
Oxycodone [Roxicodone] Med 01/08/24 13:09 Active
10 mg PO Q4HPRN PRN
Oxycodone [Roxicodone] Med 01/08/24 07:18 Active
5 mg PO Q4HPRN PRN
Ropinirole [Requip] Med 01/08/24 22:00 Active
0.5 mg PO HS
Sennosides [Senokot] Med 01/08/24 20:00 Active
17.2 mg PO BID
Sterile Water [Sterile Water For Injection] Med 01/08/24 18:00 Active
10 ml IV Q12H
Tamsulosin [Flomax] Med 01/08/24 07:18 Active
0.4 mg PO DAILYPRN PRN
Vitals:
Temp Pulse Resp BP Pulse Ox
98.1 F 81 18 147/81 94
01/11/24 07:22 01/11/24 07:22 01/11/24 07:22 01/11/24 07:37 01/11/24 07:22
Height 5 ft 4 in
Actual Weight 114.4 kg
Body Mass Index (BMI) 43.3
Physical Exam:
General Appearance/Observation: Well-developed, well-nourished female in no apparent distress.
Pain/Comfort Assessment: Denies at the moment with pain med
Mood/Affect: Appropriate, pleasant
Integumentary/Operative Site:Wound vac in place with scan bloody output- left lower extremity
�� Pressure Ulcer Evaluation: absent over heels.
��
Eyes: Conjunctiva/Lids: normal ��� Pupils: pupils equal round and reactive to light and Accommodation
Ears/Nose/Throat: oral mucosa moist,� throat clear.������������ Lips/Teeth/Gums: normal
Neck: No muscle spasm or tenderness
Cardiovascular: Heart: regular, no murmur
Pulses: dorsalis pedis 1+ bilaterally
Respiratory: Respiratory Effort/Chest Expansion: normal ������ Auscultation: Clear to auscultation bilaterally
Gastrointestinal: abdomen not tender, no distension, normal abdominal bowel sounds
Genitourinary: No Mccoy
Extremities: Edema: left lower ext. swelling>right Cyanosis: None Trophic changes: None
Neurology Exam:
Orientation: Alert, Oriented to self, Time, Place
Memory: Intact for recent medical concerns
Comprehension: Intact
Two step command: Intact
Naming: Intact
Cranial Nerves:
�� CNII: Pupillary light reflex: Intact��
�� CN III, IV, : Extraocular muscles: Intact
�� CN VII: Facial movement: Symmetric
�� CN VIII: Hearing: Normal
�� CN IX/X: Speech & swallow: Normal, Position of Uvula: Midline
�� CN XI: Shoulder shrug: Symmetric
�� CN XII: Tongue protrusion: Midline
Sensory:
�� Light touch: Intact in bilateral upper and lower extremities
��
Reflexes:
�� Biceps: 2+ bilaterally
�� Brachioradialis: 2+ bilaterally
�� Triceps: 2+ bilaterally
�� Patellar: 2+ right , left deferred
�� Achilles: 1+ bilaterally
�� Babinski: Down going bilaterally
�� Leo: Negative bilaterally
Musculoskeletal: Motor: (Manual muscle scale 0-5)
Muscle SA EF WE EE FF FA HF KE DF EHL PF
Right� 5 5 5 5 5 5 4 4 5 5 5
Left 5 5 5 5 5 5
-able to wiggle left toes
Tone: Normal in all extremities, left LE not tested
Range of Motion: Passively within normal limits in all extremities, Left LE not tested
Lab Results
Labs
WBC 11.5 10^3/uL (4.8-10.8) H 01/09/24 08:21
RBC 3.24 10^6/uL (4.20-5.40) L 01/09/24 08:21
Hgb 9.9 g/dL (12.0-16.0) L 01/09/24 08:21
Hct 30.8 % (37.0-47.0) L 01/09/24 08:21
MCV 95.1 fL (81.0-99.0) 01/09/24 08:21
MCH 30.6 pg (27.0-31.0) 01/09/24 08:21
MCHC 32.1 g/dL (33.0-37.0) L 01/09/24 08:21
RDW 13.7 % (11.5-14.5) 01/09/24 08:21
Plt Count 173 10^3/uL (130-400) 01/09/24 08:21
MPV 10.1 fL (7.4-10.4) 01/09/24 08:21
Abs Immat Gran (auto) 0.1 10^3/uL (0-0.05) H 01/09/24 08:21
Absolute Neuts (auto) 6.8 10^3/uL (1.4-6.5) H 01/09/24 08:21
Absolute Lymphs (auto) 3.8 10^3/uL (1.2-3.4) H 01/09/24 08:21
Absolute Monos (auto) 0.7 10^3/uL (0.1-0.6) H 01/09/24 08:21
Absolute Eos (auto) 0.0 10^3/uL (0-0.7) 01/09/24 08:21
Absolute Basos (auto) 0.0 10^3/uL (0-0.2) 01/09/24 08:21
Immature Gran % 0.8 % (0-0.5) H 01/09/24 08:21
Neutrophils % 58.8 % (42.2-75.2) 01/09/24 08:21
Lymphocytes % 33.5 % (20.5-51.1) 01/09/24 08:21
Monocytes % 6.5 % (1.7-9.3) 01/09/24 08:21
Eosinophils % 0.1 % (0-6) 01/09/24 08:21
Basophils % 0.3 % (0-2) 01/09/24 08:21
Nucleated RBC % 0 % 01/09/24 08:21
Sodium 137 mmol/L (135-145) 01/08/24 06:56
Potassium 3.9 mmol/L (3.5-5.1) 01/08/24 06:56
Chloride 106 mmol/L (98-107) 01/08/24 06:56
Carbon Dioxide 25 mmol/L (22-30) 01/08/24 06:56
BUN 17 mg/dl (7-17) 01/08/24 06:56
Creatinine 0.8 mg/dL (0.6-1.0) 01/08/24 06:56
Estimated Creat Clear 99 ml/min 01/08/24 06:56
eGFR > 60.00 01/08/24 06:56
Glucose 199 mg/dl (70-99) H 01/08/24 06:56
Calcium 9.2 mg/dl (8.4-10.2) 01/08/24 06:56
Blood Type O POS 01/08/24 07:39
Blood Type Confirm Cancelled 01/08/24 09:11
Antibody Screen Negative (Negative) 01/08/24 07:39
�
Diagnostic Results: as per HPI
Assessment
53-year-old F PMH (Hypertension, Asthma, Morbid Obesity, RLS, Gout,Anxiety) with left total knee replacement 01/07/2024 with mechanical fall requiring primary repair of left patella tendon with suture. Placement of incisional wound VAC.
Plan
PT/OT to increase independence with ADLs, improve balance, coordination, endurance, strength, mobility, community reintegration, decreased burden of care on others and family education.
Left total knee replacement on 01/06 with wound dehiscence/ s/p tendon repair: 01/07 underwent Post left knee irrigation and debridement with polyethylene liner exchange, primary repair of left patella tendon with suture. Placement of incisional
wound VAC. wound care/wound vac management. Per ortho touchdown weight bearing with walker. Knee immobilizer at all times except wound care.�
-Absolutely no flexion of the knee. Knee must remain 100% straight at all times, for 3 months
-ID recommended-IV cefepime 2g IVq12h x 2 weeks through 01/23/2024. Continue metronidazole 500mg po q8 through 01/23/24. Follow weekly CMP, CBC, CRP while on abx.�
-Per surgeon- every second of every minute of every day.� Must not bend in the slightest for 3 months.�
HTN: Losartan potassium 50 mg daily, monitor closely
RLS: Requip 0.5 at bedtime.
Asthma: Advair HFA 112 5/21 mcg inhaler, 2 puffs daily
Bilateral lower extremity edema: Consider TEDS as able. Increased fluid will cause more force requirement to move lower extremities which requires more strength and increases fatigue. Lasix prn
Anemia: Likely multifactorial.�Hgb 9.9 Continue to monitor.
Gout:Allopurinol 100mg qd
Psych: Psychology consult.� anxiety- Lexapro 5mg, adjust medications as needed.
Skin: monitor for pressure sores/rashes/lesions. Wound vac noted on left side. Left knee in immobilizer
Pain: acetaminophen or oxycodone as needed. Ice and elevation for edema control.
Bowel: Colace and Senna, PRN bisacodyl.
Bladder: No urinary complaints, monitor output
DVT Prophylaxis: ortho Recommend ASA 325 mg daily x4 weeks for DVT prophylaxis.
Pulmonary: Incentive spirometry
Morbid obesity: Continue to counseling program leader patient about diet adjustments to control obesity. Body habitus and increased force to move body and extremities causes further difficulty with functional tasks.
Safety: Continue to reinforce assistance with all transfers.
Code Status:� Full code
Dispo (date/plan/equipment needs): Home with family care.� Social history reviewed.
Functional and Medical Goals: Modified Independent with ADL�s, ambulation, transfers
Summary of recommendations:
Discharge Destination: Patient would benefit from acute inpatient rehab due to morbid obesity with limited activity on the left side secondary to patellar reconstruction, is on IV antibiotics to prevent infection and requiring
wound VAC which require fpc care. Will need to be fitted with wheelchair and proper equipment for toileting.
Left total knee replacement on 01/06 with wound dehiscence/ s/p tendon repair: 01/07 underwent Post left knee irrigation and debridement with polyethylene liner exchange, primary repair of left patella tendon with suture. Placement of incisional
wound VAC. wound care/wound vac management. Per ortho touchdown weight bearing with walker. Knee immobilizer at all times except wound care.�Absolutely no flexion of the knee.
-ID recommended-IV cefepime 2g IVq12h x 2 weeks through 01/23/2024. Continue metronidazole 500mg po q8 through 01/23/24. Follow weekly CMP, CBC, CRP while on abx.�
-Per surgeon- every second of every minute of every day.� Must not bend in the slightest for 3 months.�
Pain: acetaminophen or oxycodone as needed.Ice and elevation for edema control. Patient needs to be off IV pain meds for transfer to rehab.
Nausea: Reglan prn. Can try eating first before taking pain meds and see if that improves nausea, may need change in medications
DVT Prophylaxis: Aspirin 325 mg daily x4 weeks for DVT prophylaxis.
Pulmonary: Incentive spirometry
Morbid obesity: Continue to counseling program leader patient about diet adjustments to control obesity. Body habitus and increased force to move body and extremities causes further difficulty with functional tasks.
Attending statement:
I saw and examined the patient today. Reviewed care plan with patient, therapy, nursing, and physician physician office assistant. I agree with the above subjective, physical exam, and plan as documented above.
[2024-01-11 16:19] VITALS: BP 168/97
[2024-01-11] MEDS: XANAX 0.5 MG PO ×2 (17:17→22:30)
--- NOTE | 2024-01-11 17:55 | PTCARENOTE ---
Patient's blood pressure noted to be elevated; Dr. Jose made aware; Instructed to monitor BP; No further orders or interventions at this time
[2024-01-11] MEDS: REQUIP 0.5 MG PO (19:47)
[2024-01-11 23:00] VITALS: BP 158/93
[2024-01-12] MEDS: TYLENOL PO (00:07)
[2024-01-12] MEDS: TYLENOL 650 MG PO ×5 (03:39→20:41)
[2024-01-12] MEDS: FLUSH (NSS) 1 FLUSH IV (05:51)
[2024-01-12] MEDS: FLAGYL 500 MG PO ×3 (05:51→20:37)
[2024-01-12] MEDS: MAXIPIME 2000 MG IV ×2 (05:51→17:42)
[2024-01-12] MEDS: STERILE WATER FOR INJECTION 10 ML IV ×2 (05:51→17:42)
[2024-01-12] MEDS: ROXICODONE 10 MG PO (05:59)
[2024-01-12 07:46] VITALS: BP 153/92
[2024-01-12] MEDS: ADVAIR HFA 115/21 MCG INHALER 2 PUFF INH (07:51)
[2024-01-12] MEDS: SENOKOT 17.1999999999999993 MG PO ×2 (08:52→20:37)
[2024-01-12] MEDS: LEXAPRO 5 MG PO (08:52)
[2024-01-12] MEDS: COLACE 100 MG PO ×2 (08:52→20:37)
[2024-01-12] MEDS: REGLAN 10 MG PO ×3 (08:53→16:10)
[2024-01-12] MEDS: SINGULAIR 10 MG PO (08:53)
[2024-01-12] MEDS: ASPIRIN 325 MG PO (08:53)
[2024-01-12] MEDS: ZYLOPRIM 100 MG PO (08:55)
[2024-01-12] MEDS: COZAAR 50 MG PO (08:55)
--- NOTE | 2024-01-12 09:38 | W.PN.ID1 ---
Date of Service
Date of Service: January 12, 2024
Today's Communication
Continue current abx
Assessment / Plan
# s/p left TKR 01/07/24 s/p same day fall with wound dehiscence, ruptured patella tendon.
- 01/08/24 s/p I+D, polyethylene exchange, tendon repair
OR cx neg to date
-Currently on IV cefepime and po metronidazole (d4)
-Very low probability of bacteria seeding prosthetic joint from wound dehiscence.
She received IV abx immediately at [facility], then at next day.
However, Ortho Dr. Jose requesting IV antibiotic to protect prosthesis
- Will plan on cefepime 2g IVq12h x 2 weeks through 01/23/2024
Continue metronidazole 500mg po q8 through 01/23/24.
Follow weekly CMP, CBC, CRP while on abx.
- midline in place
Infusion sheet submitted to case repairer.
- From ID standpoint, can dc when IV abx set up.
����������������������������������������������������������
Chief Complaint
-: Other (Left knee wound dehiscence)
Subjective / Review of Systems
Review of Systems: No Fever, No Chills and Nausea (yesterday; improved today)
Vital Signs / Physical Exam
Vital Signs
Vital Signs
Temp Pulse Resp BP Pulse Ox
98.3 F 83 14 153/82 91
01/12/24 07:46 01/12/24 08:55 01/12/24 07:54 01/12/24 08:55 01/12/24 07:46
Physical Exam
Constitutional: No Acute Distress, Comfortable and Non-toxic
Eyes: Sclera Anicteric
Cardiovascular: S1/S2; Negative S3/S4
Pulmonary: Non Labored; Negative Wheezes, Rales or Rhonchi
Gastrointestinal: Soft, Non Tender and Non Distended
Extremities: Other (left knee in immobilizer. VAC in place to the knee area. Dorsal pedal pulses intact.)
Skin: Warm and Dry; Negative Rash or Jaundice
Neurological: Awake and Alert
Psychological: Calm
Objective Data
Lab Data
Lab Results
01/09/24 08:21
01/08/24 06:56
Estimated Creat Clear 99 ml/min 01/08/24 06:56
Most recent labs reviewed.
Micro Results:
01/08/24 12:23 Tissue Culture - Final
Knee - Left No Growth After 72 Hours
Gram Stain - Final
01/08/24 Knee XRAY: There is moderate joint effusion with relatively superior positioning of the patella raising concern that the patellar tendon may not be intact.�
--- NOTE | 2024-01-12 13:21 | W.PN.UPDATE ---
Update Note
Progress Note Update
Elly is resting comfortably in her chair this morning. She reports overall she is doing well, and her symptoms continue to improve with time. Her pain is well controlled with her current pain management regimen. She has no questions or concerns
at this time. Wound vac dressing was changed yesterday.
On exam, wound vac in place with scant bloody output. Expected edema throughout the left lower extremity. Small blisters over the lateral aspect of the knee. Minimal tenderness to palpation about the knee. Calf soft and nontender. NVID.
Cultures negative for growth.
--Continue touchdown weight bearing to LLE. Continue knee immobilizer. Knee to remain 100% straight. PT/OT.
--ASA 325 mg daily for DVT ppx.
--Continue antibiotics per ID. Currently IV cefepime and po metronidazole.
--Continue current pain management regimen.
--Patient hoping for discharge to [facility] re[facility]. Appreciate the assistance of case management with coordinating this.
--Will continue to follow. Please reach out with any additional questions or concerns.
[2024-01-12 15:31] VITALS: BP 138/83; PULSE 77
[2024-01-12 16:13] VITALS: BP 138/83
[2024-01-12] MEDS: REQUIP 0.5 MG PO (20:37)
[2024-01-12] MEDS: XANAX 0.5 MG PO (20:37)
[2024-01-12 22:36] VITALS: BP 139/80
[2024-01-13] MEDS: TYLENOL PO ×2 (00:21→04:14)
[2024-01-13] MEDS: FLAGYL 500 MG PO ×3 (05:21→21:31)
[2024-01-13] MEDS: MAXIPIME 2000 MG IV ×2 (05:21→17:01)
[2024-01-13] MEDS: STERILE WATER FOR INJECTION 10 ML IV ×2 (05:21→17:02)
[2024-01-13] MEDS: REGLAN 10 MG PO ×3 (07:08→17:01)
[2024-01-13 07:42] VITALS: BP 138/91
[2024-01-13] MEDS: TYLENOL 650 MG PO ×5 (07:48→23:28)
[2024-01-13] MEDS: LEXAPRO 5 MG PO (07:49)
[2024-01-13] MEDS: ASPIRIN 325 MG PO (07:49)
[2024-01-13] MEDS: SENOKOT 17.1999999999999993 MG PO (07:49)
[2024-01-13] MEDS: SINGULAIR 10 MG PO (07:50)
[2024-01-13] MEDS: XANAX 0.5 MG PO ×2 (07:50→20:06)
[2024-01-13] MEDS: ZYLOPRIM 100 MG PO (07:50)
[2024-01-13] MEDS: COLACE 100 MG PO (07:50)
[2024-01-13] MEDS: COZAAR 50 MG PO (07:50)
[2024-01-13] MEDS: ADVAIR HFA 115/21 MCG INHALER 2 PUFF INH (08:16)
[2024-01-13 15:42] VITALS: BP 135/76
--- NOTE | 2024-01-13 19:01 | W.PN.UPDATE ---
Update Note
Progress Note Update
Elly is resting comfortably in her chair this evening. She reports overall she is doing well, and her symptoms continue to improve with time. Her pain is well controlled with her current pain management regimen. She has no questions or concerns
at this time. Wound vac at 125 mmHg with scant bloody output.
On exam, wound vac in place with scant bloody output. Expected edema throughout the left lower extremity. Small blisters over the lateral aspect of the knee. Minimal tenderness to palpation about the knee. Calf soft and nontender. NVID.
Cultures negative for growth.
--Continue touchdown weight bearing to LLE. Continue knee immobilizer. Knee to remain 100% straight at all times. PT/OT.
--ASA 325 mg daily for DVT ppx.
--Continue antibiotics per ID. Currently IV cefepime and po metronidazole. Ok for d/c per ID.
--Continue current pain management regimen.
--Patient hoping for discharge to [facility]. Appreciate the assistance of case management with coordinating this. It appears we are awaiting insurance clearance and home IV antibiotic infusions.
--Will continue to follow. Please reach out with any additional questions or concerns.
[2024-01-13] MEDS: COLACE PO (20:03)
[2024-01-13] MEDS: SENOKOT PO (20:03)
[2024-01-13] MEDS: REQUIP 0.5 MG PO (21:31)
[2024-01-13 23:29] VITALS: BP 132/74
[2024-01-14] MEDS: FLAGYL 500 MG PO ×3 (05:04→21:23)
[2024-01-14] MEDS: TYLENOL 650 MG PO ×5 (05:04→19:59)
[2024-01-14] MEDS: STERILE WATER FOR INJECTION 10 ML IV ×2 (05:04→17:50)
[2024-01-14] MEDS: MAXIPIME 2000 MG IV ×2 (05:04→17:50)
[2024-01-14] MEDS: XANAX 0.5 MG PO ×2 (05:24→21:23)
--- NOTE | 2024-01-14 05:42 | PTCARENOTE ---
Pt awake intermittently t/o the night, did not sleep well. pt reports pain at tolerable level. Pt using BSCx1 and walker without difficulty. Left leg immobilizer in place and leg kept straight per MD order. Wound Vac in place. Will monitor.
[2024-01-14 07:00] VITALS: BP 143/83
[2024-01-14] MEDS: ADVAIR HFA 115/21 MCG INHALER 2 PUFF INH (08:01)
--- NOTE | 2024-01-14 08:43 | W.PN.ORTHO ---
Today's Communication / Plan
-
--Continue touchdown weight bearing to LLE. Continue knee immobilizer. Knee to remain 100% straight at all times. PT/OT. NWPD in place.
--ASA 325 mg daily for DVT ppx.
--Continue antibiotics per ID. Currently IV cefepime and po metronidazole. Ok for d/c per ID.
--Continue current pain management regimen.
--Patient hoping for discharge to [facility]. Appreciate the assistance of case management with coordinating this. It appears we are awaiting insurance clearance and home IV antibiotic infusions.
--Will continue to follow and ready for DC orders if approved.
Assessment
.
Distal Motor Intact: Yes
Dressing:
Clean, dry and intact.
Plan
.
Surgery / Date: Left knee I&D with poly exchange
Activity:
Out of bed.
PT/OT
Subjective
.
.:
Patient resting comfortably. Feels ready for DC/transition to rehab
Vital Signs and Labs
.
Vital Signs and Labs:
Lab Results
01/09/24 08:21
01/08/24 06:56
Temp Pulse Resp BP Pulse Ox
98.7 F 78 16 143/83 94
01/14/24 07:00 01/14/24 08:05 01/14/24 08:05 01/14/24 07:00 01/14/24 08:05
[2024-01-14] MEDS: REGLAN 10 MG PO ×3 (08:59→17:50)
[2024-01-14] MEDS: ASPIRIN 325 MG PO (08:59)
[2024-01-14] MEDS: SENOKOT PO ×3 (08:59→19:59)
[2024-01-14] MEDS: LEXAPRO 5 MG PO (08:59)
[2024-01-14] MEDS: SINGULAIR 10 MG PO (08:59)
[2024-01-14] MEDS: COLACE PO ×3 (09:00→19:59)
[2024-01-14] MEDS: COZAAR 50 MG PO (09:00)
[2024-01-14] MEDS: ZYLOPRIM 100 MG PO (09:00)
[2024-01-14 09:59] LABS: Erythrocyte Sed Rate 28 mm/hour (0-20)
--- NOTE | 2024-01-14 10:08 | CM ---
Addendum entered by Nery Dodson 01/14/24 13:08:
Per Rere at [facility], patient has been approved for 7 days Acute at [facility], Auth [id number], 01/15/24 to 01/22/24, [facility] will need to Fax to Acute rehab team at [facility], .
Addendum entered by Nery Dodson 01/14/24 11:07:
Call placed to patient's insurance, , Auth is pending, updated clinicals faxed, including wound vac and IV ABX information.
Original Note:
Chart reviewed and plan is for acute rehab placement at [facility], patient still waiting on Auth from her insurance, patient needs PT/OT, wound vac and IV ABX in rehab setting, casework supervisor will continue to reach out to insurance today to obtain Auth.
Plan; Hopefully patient will be approved for Acute rehab at [facility].
--- NOTE | 2024-01-14 10:11 | W.PN.ID1 ---
Date of Service
Date of Service: January 14, 2024
Today's Communication
Continue abx's till 01/23/24.
Assessment / Plan
# s/p left TKR 01/07/24 s/p same day fall with wound dehiscence, ruptured patella tendon.
- 01/08/24 s/p I+D, polyethylene exchange, tendon repair
OR cx neg
-Currently on IV cefepime and po metronidazole (d4)
-Very low probability of bacteria seeding prosthetic joint from wound dehiscence.
She received IV abx immediately at [facility], then at next day.
However, Ortho Dr. Jose requesting IV antibiotic to protect prosthesis
- Continue on cefepime 2g IVq12h x 2 weeks through 01/23/2024
Continue metronidazole 500mg po q8 through 01/23/24.
Follow weekly CMP, CBC, CRP while on abx.
- midline in place
Infusion sheet submitted to pillowcase sewer.
- Awaiting Rehab.
����������������������������������������������������������
Chief Complaint
-: Other (Left knee wound dehiscence)
Subjective / Review of Systems
No N/V/D. Waiting for rehab placement.
Vital Signs / Physical Exam
Vital Signs
Vital Signs
Temp Pulse Resp BP Pulse Ox
98.7 F 78 16 143/83 94
01/14/24 07:00 01/14/24 08:05 01/14/24 08:05 01/14/24 07:00 01/14/24 08:05
Physical Exam
Constitutional: No Acute Distress and Comfortable
Pulmonary: Clear
Gastrointestinal: Soft and Non Tender
Wound: Other (LLE immobilizer in place with vac.)
Neurological: AO x 3
Lines: Other (RLE midline no erythema)
Objective Data
Lab Data
Lab Results
01/09/24 08:21
01/08/24 06:56
ESR 28 mm/hour (0-20) H 01/14/24 09:06
Estimated Creat Clear 99 ml/min 01/08/24 06:56
C-Reactive Protein 46.00 mg/L (0.0-10.00) H 01/14/24 09:06
Most recent labs reviewed.
Micro Results:
01/08/24 12:23 Tissue Culture - Final
Knee - Left No Growth After 72 Hours
Gram Stain - Final
01/08/24 Knee XRAY: There is moderate joint effusion with relatively superior positioning of the patella raising concern that the patellar tendon may not be intact.�
--- NOTE | 2024-01-14 13:19 | WOUNDNOTE ---
[facility] RN Note: Patient's L knee incisional vac changed. Small ss drainage from incision. Minimal skin irritation along incision. Knee bruising fading. Patient tolerated well. Patient's L lateral thigh intact blisters larger than Sunday. Alex texted
update with L knee incisional photo and L lateral thigh blister photo to Dr. Jose and Dr. Portillo. Adaptic and ABD pad applied to L lateral thigh blisters. Dr. Herrera responded continue Vac for 3 more days, then discontinue and apply daily ABD pad
thereafter. Updated [employer] Attendant Nery Zuniga and [facility] RN Young Waggoner. Nery stated she obtained [facility] auth to start tomorrow so plan is transfer to [facility] tomorrow. Thalia stated she will obtain [facility] vac tomorrow. Updated ANDREW Ellis and
discharge instructions. Patient transferred back to recliner chair with help from patient's daughter Nancy who also works as RN in ED. NWB LLE and L leg/knee remained straight at all times. L knee immobilizer on. Skin on heels and sacrum
intact. L heel blanchable mild red and intact. Pillow off loading heels paying attention not to place pillow behind the L knee. Patient reports a good appetite now that she hasn't been taking pain medicine.
[2024-01-14 15:00] VITALS: BP 121/76
[2024-01-14] MEDS: REQUIP 0.5 MG PO (21:23)
[2024-01-14 22:53] VITALS: BP 136/78
[2024-01-15] MEDS: TYLENOL PO ×2 (01:40→05:02)
[2024-01-15] MEDS: STERILE WATER FOR INJECTION 10 ML IV (05:21)
[2024-01-15] MEDS: FLAGYL 500 MG PO ×2 (05:21→13:21)
[2024-01-15] MEDS: MAXIPIME 2000 MG IV (05:21)
[2024-01-15] MEDS: TYLENOL 650 MG PO ×3 (05:38→12:13)
--- NOTE | 2024-01-15 07:17 | W.PN.ORTHO ---
Today's Communication / Plan
-
Patient doing well today and will be transferred to [facility] today.
Assessment
.
Distal Motor Intact: Yes
Dressing:
Clean, dry and intact.
Plan
.
Surgery / Date: Left knee I&D with poly exchange
DVT Prophylaxis: Aspirin
Activity:
Out of bed.
PT/OT
Discharge Plan: Rehab
Subjective
.
.:
Patient resting comfortably.
Vital Signs and Labs
.
Vital Signs and Labs:
Lab Results
01/09/24 08:21
01/08/24 06:56
Temp Pulse Resp BP Pulse Ox
98.7 F 100 16 136/78 94
01/14/24 22:53 01/14/24 22:53 01/14/24 22:53 01/14/24 22:53 01/14/24 23:20
[2024-01-15] MEDS: ADVAIR HFA 115/21 MCG INHALER 2 PUFF INH (07:59)
[2024-01-15 08:00] VITALS: BP 124/72
[2024-01-15] MEDS: REGLAN 10 MG PO ×2 (08:22→12:13)
[2024-01-15] MEDS: ZYLOPRIM 100 MG PO (08:22)
[2024-01-15] MEDS: COLACE PO (08:22)
[2024-01-15] MEDS: SENOKOT PO (08:23)
[2024-01-15] MEDS: SINGULAIR 10 MG PO (08:23)
[2024-01-15] MEDS: LEXAPRO 5 MG PO (08:23)
[2024-01-15] MEDS: COZAAR 50 MG PO (08:23)
[2024-01-15] MEDS: ASPIRIN 325 MG PO (08:23)
--- NOTE | 2024-01-15 09:36 | CM ---
Chart reviewed and bed is available at [facility] today, patient has been approved for 7 days by insurance. Waiting on Wound Vac delivery to [facility].
Plan; Patient to transfer to [facility] acute rehab today.
[facility]
Report
[phone]
--- NOTE | 2024-01-15 09:53 | W.PN.ID1 ---
Date of Service
Date of Service: January 15, 2024
Today's Communication
Continue on cefepime 2g IVq12h x 2 weeks through 01/23/2024
Continue metronidazole 500mg po q8 through 01/23/24.
Assessment / Plan
# s/p left TKR 01/07/24 s/p same day fall with wound dehiscence, ruptured patella tendon.
- 01/08/24 s/p I+D, polyethylene exchange, tendon repair
OR cx neg
-Currently on IV cefepime and po metronidazole (d4)
-Very low probability of bacteria seeding prosthetic joint from wound dehiscence.
She received IV abx immediately at [facility], then at next day.
However, Ortho Dr. Jose requesting IV antibiotic to protect prosthesis
- Continue on cefepime 2g IVq12h x 2 weeks through 01/23/2024
Continue metronidazole 500mg po q8 through 01/23/24.
Follow weekly CMP, CBC, CRP while on abx.
- To [facility] today.
����������������������������������������������������������
Chief Complaint
-: Other (Left knee wound dehiscence)
Subjective / Review of Systems
No new complaints.
Vital Signs / Physical Exam
Vital Signs
Vital Signs
Temp Pulse Resp BP Pulse Ox
98.5 F 90 14 124/72 92
01/15/24 08:00 01/15/24 08:08 01/15/24 08:08 01/15/24 08:00 01/15/24 08:08
Physical Exam
Constitutional: No Acute Distress and Comfortable
Extremities: Edema (LLE 2+)
Wound: Other (Reviewed 01/13 photos: left knee sutures intact, + surrounding ecchymosis, large blisters on lateral knee)
Lines: Other (midline intact)
Objective Data
Lab Data
Lab Results
01/09/24 08:21
01/08/24 06:56
ESR 28 mm/hour (0-20) H 01/14/24 09:06
Estimated Creat Clear 99 ml/min 01/08/24 06:56
C-Reactive Protein 46.00 mg/L (0.0-10.00) H 01/14/24 09:06
Most recent labs reviewed.
Micro Results:
01/08/24 12:23 Tissue Culture - Final
Knee - Left No Growth After 72 Hours
Gram Stain - Final
01/08/24 Knee XRAY: There is moderate joint effusion with relatively superior positioning of the patella raising concern that the patellar tendon may not be intact.�
[2024-01-15] MEDS: XANAX 0.5 MG PO (10:08)
--- NOTE | 2024-01-15 14:26 | W.DS.TRANS ---
DC Summary - Inside Sales Trainer
-
Discharge Instructions:
Discharge Diagnosis/Procedures L TKA I & D with poly exchange, patella tendon
repair and wound vac placement
Diet As tolerated
Activity With Walker,Do not bear weight L leg
Additional Activity Knee immobilizer at all times (may be TDWB left
leg)
Driving Restrictions No driving
Bathing Restrictions Too unsafe for her to shower, may bath bedside
Other Services PT,OT
Instructions:
Stand-Alone Forms:
Changes to Home Medications: No
Discharge Medications:
DC Medications w/original date entered in State
albuterol sulfate 90 mcg/actuation aerosol inhaler 2 puff inhalation R Q4HPRN PRN wheeze 01/08/24
allopurinol 100 mg tablet 100 mg PO DAILY gout 01/08/24
alprazolam 0.5 mg tablet 0.5 mg PO BID PRN anxiety 01/08/24
aspirin 325 mg tablet 325 mg PO DAILY@2000 Blood Clot Prevention/Tx 01/08/24
celecoxib 100 mg capsule 100 mg PO BID Pain 01/08/24
cholecalciferol (vitamin D3) 125 mcg (5,000 unit) tablet 125 mcg PO TUFR@0800 Supplement 01/08/24
escitalopram oxalate 5 mg tablet 5 mg PO DAILY depression 01/08/24
fluticasone 250 mcg-salmeterol 50 mcg/dose blistr powdr for inhalation (Advair Diskus) 1 inh inhalation R DAILY Lung/Breathing Issues 01/08/24
furosemide 20 mg tablet 20 mg PO DAILY PRN swelling 01/08/24
losartan 50 mg tablet 50 mg PO DAILY Blood Pressure 01/08/24
montelukast 10 mg tablet 10 mg PO DAILY Allergies 01/08/24
ropinirole 0.5 mg tablet 0.5 mg PO HS Neurological Condition 01/08/24
therapeutic multivitamin 1 tab PO DAILY Supplement 01/08/24
cefepime 2 gram solution for injection 2,000 mg IV Q12H #10 ea 01/15/24
docusate sodium 100 mg capsule 100 mg PO BID #30 caps 01/15/24
magnesium hydroxide 400 mg/5 mL oral suspension 30 ml PO DAILYPRN PRN constipation #355 mL 01/15/24
metronidazole 500 mg tablet 500 mg PO Q8H #30 tabs 01/15/24
oxycodone 5 mg tablet 5 mg PO Q4HPRN PRN mild pain #20 tabs 01/15/24
sennosides 8.6 mg tablet (Senna Laxative) 17.2 mg PO BID #30 tabs 01/15/24
Home Medication Changes
Pending Results: No
--- NOTE | 2024-01-15 14:30 | WOUNDNOTE ---
DOMINICK RN NOTE: Patient for transfer to [facility], was informed they received their wound vac machine. Disconnected our vac machine from dressing and clamped tubing for transfer. Put vac machine in soiled utility rm. Will notify /[facility] for pickup.
--- NOTE | 2024-01-15 15:24 | W.PN.UPDATE ---
Update Note
Progress Note Update
Pt's anemia during this hospitalization was acute blood loss anemia secondary to wound dehiscence.
--- NOTE | 2024-01-16 08:16 | WOUNDNOTE ---
WOC RN note: Notified [facility] re: hospital rental pump linen supply load builder via [employer] (work order#[id number])
--- NOTE | 2024-01-18 09:27 | W.PN.UPDATE ---
Update Note
Progress Note Update
When they consulted inpatient ID suggested they thought risk of contamination of the TKA from the wound dehiscence was low but I differed with that assessment. When patient fell she split her wound wide open to the joint, she was taken against her
will to a different ER where she sat with the wound open for 12 hrs before being transferred to then it was several more horus before a OR was available for me to do an I&D. Infectious disease agreed to 2 weeks iv abx at my request (their
initial recommendation was no IV ABX). After the IV abx are completed I'd strongly suggest administration of PO abx for 2-4 addl weeks. It would also be good to see a periodic sed rate and CRP. When it was checked the last day of her
inpatient hospitalization values were decent, not in a range that it looked like infection was forming. Also, I stopped by on sunday to see her and her wound vac had zero output so I am thinking it can be d/c and wound left open or w. gauze
depending on appearance at that time. Lastly I conferred w. TT w. PT there confirming restrictions of no knee flexion, no quad sets, knee imob on at all times except when changing clothes or bathing but during that time knee must be straight as an
arrow and if her leg needs to be lifted off the bed to change clothes or wash underneath it has to be lifted by someone else, she cant help at all. She is aware of this too.
== END 2024-01-15 15:06 | DRG 908 ==
LOC: 2 SOUTH 10:50
PROVIDERS: Physician Assistant; ADMITTING PHYSICIAN Orthopaedic Surgery; CONSULT PHYSICIAN Internal Medicine Infectious Disease; CONSULT PHYSICIAN Physical Medicine & Rehabilitation; EMERGENCY PHYSICIAN Emergency Medicine; FAMILY PHYSICIAN Family Medicine
PROC: 0LQR0ZZ Repair Left Knee Tendon, Open Approach (ICD-10-PCS; 2024-01-08)
PROC: 0MDP0ZZ Extraction of Left Knee Bursa and Ligament, Open Approach (ICD-10-PCS; 2024-01-08)
PROC: 0SUW09Z Supplement Left Knee Joint, Tibial Surface with Liner, Open Approach (ICD-10-PCS; 2024-01-08)
PROC: 0SPD09Z Removal of Liner from Left Knee Joint, Open Approach (ICD-10-PCS; 2024-01-08)
DX: T81.31XA Disruption of external operation (surgical) wound, not elsewhere classified, initial encounter (principal); D62 Acute posthemorrhagic anemia; Z68.41 Body mass index [BMI] 40.0-44.9, adult; W01.0XXA Fall on same level from slipping, tripping and stumbling without subsequent striking against object, initial encounter; S76.112A Strain of left quadriceps muscle, fascia and tendon, initial encounter; Y93.01 Activity, walking, marching and hiking; Y92.009 Unspecified place in unspecified non-institutional (private) residence as the place of occurrence of the external cause; F41.9 Anxiety disorder, unspecified; G25.81 Restless legs syndrome; I10 Essential (primary) hypertension; E66.01 Morbid (severe) obesity due to excess calories; J45.998 Other asthma; M19.90 Unspecified osteoarthritis, unspecified site; M10.9 Gout, unspecified; F32.A Depression, unspecified; Z96.652 Presence of left artificial knee joint; Z85.3 Personal history of malignant neoplasm of breast; Z88.0 Allergy status to penicillin
CPT/HCPCS: 73564; 80048; 85025; 85652; 86140; 86850; 86900; 86901; 87070; 87176; 87205; 94640; 96374; 96375; 97116; 97163; 97166; 97530; 97535; 99285; C1776

== ENCOUNTER 2024-04-06 11:41 | Emergency (ER) | payer BC, SELFPAY ==
[2024-04-06 11:56] VITALS: BP 158/100
--- NOTE | 2024-04-06 14:00 | ED.GENMED ---
History of Present Illness
General
Chief Complaint: DVT/Possible Blood Clot
Time Seen by Provider: 04/06/24 12:13
Travel History
Have you had any contact with someone who has COVID-19?: No
Do you have any symptoms of coronavirus? Fever > 100 degrees, chills, cough, shortness of breath, sore throat, loss of taste or smell, muscle aches, or headache?: No
History of Present Illness
History of Present Illness:
53-year-old female presents to the emergency department for evaluation of left lower extremity swelling increasing for the past 3 to 4 days. Patient initially underwent a left total knee replacement in January, while performing rehab immediately
after the surgery she fell and suffered a patellar tendon rupture. Over the past week she has begun increased ambulation and PT and is no longer wearing a knee immobilizer. Has noticed increased swelling during this time. Denies any knee pain or
calf discomfort. No fevers or chills
Review of Systems
Review of Systems
Allergies reviewed?: Yes
All Other Systems: ROS reviewed and negative except as documented in HPI and ROS
Phy Exam
Physical Exam
Physical Exam:
GEN: Well appearing, NAD, WDWN
HEENT: Oral mucosa moist, no scleral icterus
Cardiac: Regular rate
Lung: No respiratory distress, no tachypnea
MSK: Mild erythema associated with the vertical incision site to the left knee, nontender, no pain with passive range of motion of the left knee. Mild left lower extremity edema, left dorsalis pedis pulse 2+
Skin: Good color, no pallor or jaundice, no rashes
Neuro: AO x3, moves all extremities freely
Psych: Calm, cooperative
Course
Orders/Labs/Results
Orders:
Orders
04/06/24 12:02
US Legs, Left [US Periph Venous LOWER Ext LT] Urgent
Comment:
Reason For Exam: increased swelling
Vital Signs
Initial and Last Documented VS:
Initial Vital Signs
Temp Pulse Resp BP Pulse Ox
97.9 F 104 17 158/100 96
04/06/24 11:56 04/06/24 11:56 04/06/24 11:56 04/06/24 11:56 04/06/24 11:56
Last Documented Vital Signs
Temp Pulse Resp BP Pulse Ox
97.9 F 90 18 142/94 97
04/06/24 11:56 04/06/24 14:03 04/06/24 14:03 04/06/24 14:03 04/06/24 14:03
MDM/Problems Addressed
MDM/Problems Addressed:
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 Likely lymphedema secondary to major surgery, I have recommended she follow-up for a repeat ultrasound in 2 to 4 weeks
with the primary doctor to make sure there is no propagation of this however no indication for anticoagulants at this time. No clinical signs or symptoms of prosthetic infection
*Critical Care Note
Total Time (30-74mins, 75-104mins- exclusive of procedures): Not Applicable
ED Attending Note
-
Portions of this chart may have been created with voice recognition software.� Occasional wrong word or��sound alike� substitutions may have occurred due to the inherent limitations of voice recognition software.
Discharge Plan
Departure
Patient Disposition: Home (Routine Discharge)
Date of Disposition: 04/06/24
Time of Disposition: 14:00
Patient with high blood pressure during this ER visit?: No
Discharge Problem:
Leg edema, left
Instructions: Swelling
Prescriptions:
No Action
fluticasone propion-salmeterol [Advair Diskus] 250-50 mcg/dose Blister With Device
1 inh INHALATION R DAILY
aspirin 325 mg Tablet
325 mg PO DAILY@1999
therapeutic multivitamin Tablet
1 tab PO DAILY
allopurinol 100 mg Tablet
100 mg PO DAILY
alprazolam 0.5 mg Tablet
0.5 mg PO BID PRN (Reason: anxiety)
Patient Comments:
01/08/2024, pt. filled this med. on 12/15/2023 for 60 tablets per PDMP.
ropinirole 0.5 mg Tablet
0.5 mg PO HS
montelukast 10 mg Tablet
10 mg PO DAILY
albuterol sulfate 90 mcg/actuation Hfa Aerosol Inhaler
2 puff INHALATION R Q4HPRN PRN (Reason: wheeze)
escitalopram oxalate 5 mg Tablet
5 mg PO DAILY
cholecalciferol (vitamin D3) 125 mcg (5,000 unit) Tablet
125 mcg PO TUFR@0800
magnesium hydroxide 400 mg/5 mL Suspension
30 ml PO DAILYPRN PRN (Reason: constipation) Qty: 355 0RF
docusate sodium 100 mg Capsule
100 mg PO BID Qty: 30 0RF
cefepime 2 gram Recon Soln
2,000 mg IV Q12H Qty: 3 0RF
losartan 50 mg Tablet
100 mg PO DAILY 30 Days Qty: 60 0RF
trazodone 50 mg Tablet
25 mg PO HSPRN PRN (Reason: Sleep) 30 Days Qty: 30 0RF
metronidazole 500 mg Tablet
500 mg PO Q8H 2 Days Qty: 6 0RF
celecoxib 100 mg Capsule
100 mg PO DAILY 30 Days Qty: 30 0RF
acetaminophen 325 mg Tablet
650 mg PO Q4HPRN PRN (Reason: mild pain) 30 Days Qty: 100 0RF
melatonin 5 mg Tablet
5 mg PO HS 30 Days Qty: 30 0RF
Lactobac/Bifidobac [Visbiome]
1 cap PO DAILY 30 Days Qty: 30 0RF
sennosides [Senna Laxative] 8.6 mg Tablet
17.2 mg PO BID Qty: 30 0RF
cefadroxil 500 mg capsule
500 mg PO BID 15 Days Qty: 30 0RF
Referrals:
Mateo Ness, DO [Family Provider] -
Activity Restrictions/Additional Instructions:
Please have your primary doctor or Orthopedist send you for a repeat ultrasound of the leg in 2-4 weeks to be sure the chronic clot in the thigh has not worsened
Interventions
Interventions:
*Risk Screen - Suicide Last Done: 04/06/24 11:42
*General Assessment Last Done: 04/06/24 11:42
*Neglect/Abuse Screening Last Done: 04/06/24 11:42
ED- Fall Risk Assessment Last Done: 04/06/24 11:42
*ED COVID-19 Vaccine History Last Done: 04/06/24 11:42
*Nursing Disposition Last Done: 04/06/24 14:16
ED- Cardiac Assessment Last Done: 04/06/24 11:42
ED- Pulmonary Assessment Last Done: 04/06/24 11:42
ED-Peripheral Vascular Assessment Last Done: 04/06/24 11:42
ED-Skin Assessment Last Done: 04/06/24 11:42
Discharge Date and Time
Discharge Date/Time: 04/06/24 14:16
Print Language: MARTINIQUAIS
[2024-04-06 14:03] VITALS: BP 142/94
== END 2024-04-06 14:16 | disposition home or self-care (01) ==
LOC: EMR 11:41
PROVIDERS: EMERGENCY PHYSICIAN Emergency Medicine; FAMILY PHYSICIAN Family Medicine
DX: R60.0 Localized edema (principal)
CPT/HCPCS: 99284; 93971

== ENCOUNTER → 2024-09-11 11:13 | Outpatient (REF) | payer BC, SELFPAY | LOC: DHSLP 11:13 | PROVIDERS: ATTENDING PHYSICIAN Internal Medicine Critical Care Medicine; FAMILY PHYSICIAN Family Medicine | DX: G47.33 Obstructive sleep apnea (adult) (pediatric) (principal) | CPT/HCPCS: 95800 ==

== ENCOUNTER → 2024-10-21 17:32 | Outpatient (REF) | payer BC, SELFPAY | LOC: DHSLP 17:32 | PROVIDERS: ATTENDING PHYSICIAN Family Medicine | DX: G47.33 Obstructive sleep apnea (adult) (pediatric) (principal); R09.02 Hypoxemia | CPT/HCPCS: 95811 ==

== ENCOUNTER 2024-11-27 15:49 | Emergency (ER) | payer BC, SELFPAY ==
[2024-11-27 15:56] VITALS: BP 155/94
[2024-11-27 16:09] VITALS: BP 152/82
[2024-11-27] MEDS: DUONEB 3 ML INH (17:23)
[2024-11-27 17:47] LABS: ALT (SGPT) 49 U/L (0-35); AST (SGOT) 57 U/L (14-36); Albumin 4.1 g/dl (3.5-5.0); Alkaline Phosphatase 102 U/L (38-126); Blood Urea Nitrogen 30 mg/dl (7-17); Calcium 9.2 mg/dl (8.4-10.2); Carbon Dioxide 28 mmol/L (22-30); Glucose 345 mg/dl (70-99); Total Bilirubin 0.3 mg/dl (0.2-1.3); Total Protein 7.7 g/dl (6.3-8.2); eGFR > 60.00
[2024-11-27 17:54] LABS: HCG, Serum Qualitative Screen Positive
[2024-11-27 17:56] LABS: Troponin I < 0.012 ng/ml
[2024-11-27 17:58] LABS: Hematocrit 41.3 % (37.0-47.0); Hemoglobin 13.7 g/dL (12.0-16.0); Mean Corp Hgb Conc. 33.2 g/dL (33.0-37.0); Mean Corpuscular Hgb 30.3 pg (27.0-31.0); Mean Corpuscular Volume 91.4 fL (81.0-99.0); Platelet Count 212 10^3/uL (130-400); Red Blood Cell Count 4.52 10^6/uL (4.20-5.40); Red Cell Dist. Width 13.3 % (11.5-14.5); White Blood Cell Count 7.8 10^3/uL (4.8-10.8)
[2024-11-27 18:02] LABS: Chloride 94 mmol/L (98-107); Potassium 3.5 mmol/L (3.5-5.1); Sodium 134 mmol/L (135-145)
[2024-11-27 18:17] LABS: COVID-19 Antigen Negative (Negative)
[2024-11-27 18:43] LABS: Beta HCG Quantitative 5.35 mIU/ml
[2024-11-27 19:00] LABS: % Basophils 0.3 % (0-2); % Immature Granulocytes 0.5 % (0-0.5); % Lymphocytes 21.2 % (20.5-51.1); % Monocytes 1.2 % (1.7-9.3); % Neutrophils 76.8 % (42.2-75.2); Absolute Lymphocytes 1.7 10^3/uL (1.2-3.4); Absolute Monocytes 0.1 10^3/uL (0.1-0.6); Nucleated Red Blood Cells % 0 %
[2024-11-27] MEDS: ROCEPHIN 1000 MG IV (19:14)
[2024-11-27] MEDS: NOVOLOG vial 5 UNITS SC (19:15)
[2024-11-27] MEDS: NSS 1000 IV (19:15)
[2024-11-27 19:19] VITALS: BP 134/76
[2024-11-27 20:22] LABS: Glucose - Point of Care 252 mg/dl (70-99)
--- NOTE | 2024-11-27 20:23 | ED.GENMED ---
History of Present Illness
General
Chief Complaint: Breathing Problem
Time Seen by Provider: 11/27/24 16:07
History of Present Illness
History of Present Illness:
54-year-old female presents to the emergency department for evaluation of cough and chest congestion ongoing for the past 6 days. She was seen at urgent care on Sunday and treated with a 4-day course of prednisone 50 mg. She was also put on
doxycycline and has been compliant with this so far. She has been using her asthma inhalers and nebulizers without significant relief. No fevers or chills.
Review of Systems
Review of Systems
Allergies reviewed?: Yes
All Other Systems: ROS reviewed and negative except as documented in HPI and ROS
Phy Exam
Physical Exam
Physical Exam:
GEN: Well appearing, NAD, WDWN
HEENT: Oral mucosa moist, no scleral icterus
Cardiac: Regular rate and rhythm, no murmurs
Lung: No respiratory distress, no tachypnea, mild expiratory wheezing heard throughout all lung t[place]
MSK: No gross deformity or injuries
Skin: Good color, no pallor or jaundice, no rashes
Neuro: AO x3, moves all extremities freely
Psych: Calm, cooperative
Scores
Heart Failure Risk
Heart Failure Risk Score: Not Applicable
Course
Orders/Labs/Results
Orders:
Orders
11/27/24 15:51
Electrocardiogram (*1) Urgent
Reason for Study: Shortness of Breath
EKG- Treatment ONCE
11/27/24 16:03
CR Chest - 2 Views Urgent
Comment:
Reason For Exam: sob/cough x 1 week
11/27/24 16:04
Test Result ONCE
11/27/24 17:08
Ipratropium/Albuterol Sulfate [Duoneb] 3 ml INH R NOW ONE
11/27/24 17:16
Beta HCG Quantitative Urgent
Comment: ADD ON
COVID-19 Antigen Urgent
Source: Nasal Swab
Complete Blood Count/With Diff Urgent
Comprehensive Metabolic Panel Urgent
HCG, Serum Qualitative Screen Urgent
Troponin I Urgent
Influenza A+B Rapid Molecular Urgent
SARITHA Source: Nasal Swab
Specimen Description:
11/27/24 17:59
Add On- LAB Urgent
Tests Added?: HCG Quant
11/27/24 18:39
0.9% Sodium Chloride 1000 ml [Nss] 1,000 ml IV BOLUS
CefTRIAXone [Rocephin] 1,000 mg IV NOW STA
Insulin Aspart [NOVOLOG vial] 5 units SC NOW STA
11/27/24 20:08
Bedside Glucose- Treatment ONCE
Abnormal Lab Results
11/27/24 11/27/24
17:16 20:21
Neutrophils % 76.8 H %
(42.2-75.2)
Monocytes % 1.2 L %
(1.7-9.3)
Sodium 134 L mmol/L
(135-145)
Chloride 94 L mmol/L
(98-107)
BUN 30 H mg/dl
(7-17)
Glucose 345 H mg/dl
(70-99)
AST 57 H U/L
(14-36)
ALT 49 H U/L
(0-35)
POC Glucose 252 H mg/dl
(70-99)
11/27/24 17:16
11/27/24 17:16
Vital Signs
Initial and Last Documented VS:
Initial Vital Signs
Temp Pulse Resp BP Pulse Ox
98.5 F 91 18 155/94 94
11/27/24 15:56 11/27/24 15:56 11/27/24 15:56 11/27/24 15:56 11/27/24 15:56
Last Documented Vital Signs
Temp Pulse Resp BP Pulse Ox
98.5 F 84 13 159/79 93
11/27/24 15:56 11/27/24 16:09 11/27/24 16:09 11/27/24 20:54 11/27/24 20:52
MDM/Problems Addressed
MDM/Problems Addressed:
Chest x-ray does suggest mild pneumonia versus atelectasis, given her lack of fever or leukocytosis this is most likely atelectasis however given her not improving symptoms after 7 days of therapy we will add cephalosporins for more appropriate
coverage of pneumonia. She was noted to have significant hyperglycemia which was most likely steroid-induced. At this time given the significant improvement of her wheezing after DuoNeb I do not feel that will be advantageous to add further
steroids at this time. Her oxygen saturations were consistently 88%, this is reportedly normal for the patient, she plans to follow-up as an outpatient routinely with pulmonology early next month. I did offer the patient admission however at this
time she does not wish to be admitted and from a respiratory standpoint appears reasonably stable enough that this is not indicated. She was treated with IV fluids and subcu insulin with improvement in glucose. Recommend outpatient glucose recheck
next week
*Critical Care Note
Total Time (30-74mins, 75-104mins- exclusive of procedures): Not Applicable
ED Attending Note
-
Portions of this chart may have been created with voice recognition software.� Occasional wrong word or��sound alike� substitutions may have occurred due to the inherent limitations of voice recognition software.
Discharge Plan
Departure
Patient Disposition: Home (Routine Discharge)
Date of Disposition: 11/27/24
Time of Disposition:
Patient with high blood pressure during this ER visit?: No
Discharge Problem:
Lingular pneumonia, Steroid-induced hyperglycemia
Instructions: Pneumonia in adults, High blood sugar in adults - ED discharge instructions
Prescriptions:
New
ipratropium-albuterol 0.5 mg-3 mg(2.5 mg base)/3 mL solution for nebulization
3 ml inhalation Q6H PRN (Reason: shortness of breath) Qty: 180 0RF
cefdinir 300 mg capsule
300 mg PO Q12H 4 Days Qty: 8 0RF
No Action
fluticasone propion-salmeterol [Advair Diskus] 250-50 mcg/dose Blister With Device
1 inh INHALATION R DAILY
aspirin 325 mg Tablet
325 mg PO DAILY@1999
therapeutic multivitamin Tablet
1 tab PO DAILY
allopurinol 100 mg Tablet
100 mg PO DAILY
alprazolam 0.5 mg Tablet
0.5 mg PO BID PRN (Reason: anxiety)
Patient Comments:
01/08/2024, pt. filled this med. on 12/15/2023 for 60 tablets per PDMP.
ropinirole 0.5 mg Tablet
0.5 mg PO HS
montelukast 10 mg Tablet
10 mg PO DAILY
albuterol sulfate 90 mcg/actuation Hfa Aerosol Inhaler
2 puff INHALATION R Q4HPRN PRN (Reason: wheeze)
escitalopram oxalate 5 mg Tablet
5 mg PO DAILY
cholecalciferol (vitamin D3) 125 mcg (5,000 unit) Tablet
125 mcg PO TUFR@0800
magnesium hydroxide 400 mg/5 mL Suspension
30 ml PO DAILYPRN PRN (Reason: constipation) Qty: 355 0RF
docusate sodium 100 mg Capsule
100 mg PO BID Qty: 30 0RF
cefepime 2 gram Recon Soln
2,000 mg IV Q12H Qty: 3 0RF
losartan 50 mg Tablet
100 mg PO DAILY 30 Days Qty: 60 0RF
trazodone 50 mg Tablet
25 mg PO HSPRN PRN (Reason: Sleep) 30 Days Qty: 30 0RF
metronidazole 500 mg Tablet
500 mg PO Q8H 2 Days Qty: 6 0RF
celecoxib 100 mg Capsule
100 mg PO DAILY 30 Days Qty: 30 0RF
acetaminophen 325 mg Tablet
650 mg PO Q4HPRN PRN (Reason: mild pain) 30 Days Qty: 100 0RF
melatonin 5 mg Tablet
5 mg PO HS 30 Days Qty: 30 0RF
Lactobac/Bifidobac [Visbiome]
1 cap PO DAILY 30 Days Qty: 30 0RF
sennosides [Senna Laxative] 8.6 mg Tablet
17.2 mg PO BID Qty: 30 0RF
cefadroxil 500 mg capsule
500 mg PO BID 15 Days Qty: 30 0RF
Referrals:
Mateo Ness, DO [Family Provider] -
Activity Restrictions/Additional Instructions:
Nebulizer every 6 hours
Complete both antibiotics in full
Have your blood sugar rechecked by your primary doctor in 1 week
Your HCG level was detectable. Although this can be normal in post menopausal females, it may be reasonable to obtain an outpatient ultrasound of your ovaries/uterus to be sure there are no abnormalities
Interventions
Interventions:
*Risk Screen - Suicide Last Done: 11/27/24 15:56
*General Assessment Last Done: 11/27/24 15:56
*Neglect/Abuse Screening Last Done: 11/27/24 15:56
*Nursing Disposition Last Done: 11/27/24 21:01
ED- Cardiac Assessment Last Done: 11/27/24 19:19
ED- Pulmonary Assessment Last Done: 11/27/24 19:19
Discharge Date and Time
Discharge Date/Time: 11/27/24 21:02
Print Language: [id number]
[2024-11-27 20:54] VITALS: BP 159/79
== END 2024-11-27 21:02 | disposition home or self-care (01) ==
LOC: EMR 15:49
PROVIDERS: EMERGENCY PHYSICIAN Emergency Medicine; FAMILY PHYSICIAN Family Medicine
DX: J18.9 Pneumonia, unspecified organism (principal); T38.0X5A Adverse effect of glucocorticoids and synthetic analogues, initial encounter; R73.9 Hyperglycemia, unspecified; J45.909 Unspecified asthma, uncomplicated; Z79.2 Long term (current) use of antibiotics
CPT/HCPCS: 99283; 94640; 96374; 96361; 71046; 80053; 82962; 84484; 84702; 84703; 85025; 87502; 87811; 93005

== ENCOUNTER → 2024-12-11 07:45 | Outpatient (REF) | payer BC, SELFPAY ==
[2024-12-11 10:31] LABS: Beta HCG Quantitative 3.81 mIU/ml
== END ==
LOC: HWRAD 07:45
PROVIDERS: ATTENDING PHYSICIAN Nurse Practitioner Women's Health; FAMILY PHYSICIAN Family Medicine
DX: Z85.3 Personal history of malignant neoplasm of breast (principal)
CPT/HCPCS: 36415; 76830; 76856; 84702